=== PATIENT | female | born 1980 | race Caucasian/White ===

== ENCOUNTER 2016-11-02 15:14 | Emergency (ER) | payer OTHER ==
[~2016-11-02] VITALS: Ht 170.2 cm; Wt 163.3 kg
[~2016-11-02 15:14] MED LIST: ACETAMINOPHEN-1 EAC1 PO; ACTICIN 5% CREA60 G1 TOP; ADIPEX-P37.5 M1 PO; ALBUTEIN 225 GM/100 IJ; ALBUTEROL INHAL17 GM IH; AMBIEN; AMBIEN 10 MG TA10 MG PO; AMBIEN 5 MG TABL5 M1 PO; AMITRIPTYLINE H25 M3 PO; APAP/CODEINE ELI5 M1 OR; BENADRYL25 MG PO; BYSTOLIC2.5 MG; CLARITIN10 MG PO; CLEOCIN HCL150 MG PO; CLEOCIN HCL300 MG PO; CYMBALTA20 MG; DIFLUCAN150 MG PO; DOCUSATE SODIU100 MG PO; DOXYCYCLINE 10100 MG PO; EFFEXOR XR150 MG PO; EFFEXOR75 MG PO; ENDOCET 10-3251 EACH PO; ENOXAPARIN40 MG/0.1 INJECTION; FIORICET 50-321 EACH PO; FISH OIL 1,0001 EAC5 PO; FLAGYL500 MG PO; FLEXERIL PO; GABAPENTIN 100100 MG PO; GLUCOPHAGE500 MG PO; HIBICLENS120 ML TP; HORIZANT600 MG PO; HUMULIN R500 UNIT/M SQ; HYDROCHLOROTHIA25 M1 PO; HYDROCODON-ACE1 EAC1; IBUPROFEN 800800 M1 PO; JANUVIA100 MG PO; KEFLEX500 MG PO; LANTUS SUBQ; LEVAQUIN 500 M500 M1 PO; LIORESAL 10 MG10 MG PO; LISINOPRIL20 MG PO; LOPERAMIDE 2 MG2 M1 PO; LOPRESSOR25 PO; LORTAB 7.5/5001 TA3 PO; LOTRIMIN30 GM TP; LUNESTA3 MG PO; LYRICA 50 MG50 MG PO; MAGNESIUM400 MG; MAGOX 400400 MG PO; METFORMIN 500500 MG PO; MIRALAX255 GM PO; MOBIC15 MG PO; NEURONTIN 300300 M1 PO; NITROFURANTOIN100 MG PO; NORCO 5-325 TA1 EACH PO; NOVOLIN 70100 UNIT/5 SUBQ; NOVOLOG100 UNIT/1; NYSTATIN15 GM TP; ONDANSETRON ODT4 MG PO; OS-CAL 500+D C1 EACH PO; PERCOCET 5-3251 EACH PO; PRENATAL COMPL1 EACH PO; PRILOSEC40 MG PO; PRINIVIL10 MG PO; PROCTOCREAM-HC30 G1 RC; PROVENTIL HFA6.7 G1 INH; RANITIDINE; SYMBICORT; SYNTHROID125 MCG PO; TOPAMAX PO; TOPAMAX50 MG PO; TUSSIONEX PENN473 ML PO; VALIUM5 MG PO; VIBRAMYCIN 100100 MG PO; VICODIN 5-5001 EACH PO; VITAMIN D1000 UNI1; XANAX; XANAX XR2 MG; ZPAK PO
[2016-11-02] MEDS ORDERED: LEXAPRO 10 MG T10 M2 PO (15:25)
[2016-11-02] MEDS ORDERED: BACTRIM DS TAB1 EACH PO (15:25)
[2016-11-02] MEDS ORDERED: METFORMIN HCL500 MG PO (15:25)
[2016-11-02] MEDS ORDERED: ZITHROMAX500 M1 (15:26)
[2016-11-02 15:29] LABS: ABSOLUTE NEUTROPHILS 9.3 thou/uL (1.4-8.2); BASOPHILS 1.3 % (0.0-2.0); EOSINOPHILS 0.4 % (0.0-3.0); HEMATOCRIT 45.9 % (37.0-47.0); HEMOGLOBIN 15.3 gm/dL (12.0-15.0); LYMPHOCYTES 22.9 % (24.0-44.0); MCH 25.3 pg (26.0-34.0); MCHC 33.4 % (28.0-37.0); MCV 75.9 fL (80.0-100.0); MONOCYTES 5.1 % (1.0-8.0); PLATELET COUNT 393 thou/uL (150-400); POLYS 70.3 % (36.0-66.0); RBC 6.05 mil/uL (4.20-5.00); RDW 15.4 % (10.5-14.5); WBC 13.2 thou/uL (4.0-11.0)
[2016-11-02 15:31] LABS: MANUAL DIFF NO
[2016-11-02 15:40] LABS: CALCIUM 10.2 mg/dL (8.5-10.1); CREATININE 0.9 mg/dL (0.6-1.3); POTASSIUM 4.6 mmol/L (3.5-5.1)
[2016-11-02 15:46] LABS: ALBUMIN 3.9 g/dL (3.4-5.0); TOTAL BILIRUBIN 0.5 mg/dL (<0.1-1.0); TOTAL PROTEIN 8.2 g/dL (6.4-8.2)
[2016-11-02 16:53] LABS: URINE BILIRUBIN NEGATIVE (Negative); URINE BLOOD NEGATIVE (Negative); URINE COLOR YELLOW; URINE GLUCOSE-RANDOM* NEGATIVE (Negative); URINE KETONES NEGATIVE (Negative); URINE NITRITE NEGATIVE (Negative); URINE PROTEIN (DIPSTICK) NEGATIVE (Negative); URINE SPECIFIC GRAVITY >= 1.030 (1.003-1.035); URINE UROBILINOGEN 0.2 E.U./dl (0.2-1.0)
[2016-11-02] MEDS ORDERED: LEVSIN0.125 MG PO (17:47)
[2016-11-02] MEDS ORDERED: PHENERGAN 25 MG25 M1 PO (17:47)
[2016-11-02 18:33] VITALS: BP 112/64
[2016-12-02] MEDS ORDERED: CLEOCIN HCL150 MG PO (22:28)
[2016-12-02] MEDS ORDERED: KEFLEX500 MG PO (22:29)
== END 2016-11-02 18:35 | disposition home or self-care (01) ==
LOC: ER 15:14
PROVIDERS: Physician Assistant
DX: R05 Cough (principal); R11.2 Nausea with vomiting, unspecified; R19.7 Diarrhea, unspecified; M79.1 Myalgia; R50.9 Fever, unspecified; R10.9 Unspecified abdominal pain; R53.1 Weakness; I10 Essential (primary) hypertension; E11.9 Type 2 diabetes mellitus without complications; F17.210 Nicotine dependence, cigarettes, uncomplicated; F10.99 Alcohol use, unspecified with unspecified alcohol-induced disorder; F12.90 Cannabis use, unspecified, uncomplicated; Z88.5 Allergy status to narcotic agent; Z88.0 Allergy status to penicillin; Z88.8 Allergy status to other drugs, medicaments and biological substances; Z88.1 Allergy status to other antibiotic agents; Z91.040 Latex allergy status

== ENCOUNTER 2019-08-26 15:18 | Emergency (ER) | payer OTHER ==
[~2019-08-26] VITALS: Ht 172.7 cm; Wt 136.1 kg
[~2019-08-26 15:18] MED LIST changes: +BACTRIM DS TAB1 EACH PO; +LEVSIN0.125 MG PO; +LEXAPRO 10 MG T10 M2 PO; +METFORMIN HCL500 MG PO; +PHENERGAN 25 MG25 M1 PO; +ZITHROMAX500 M1
[2019-08-26] MEDS ORDERED: DILAUDID1 MG/1 M1 PO (15:29)
[2019-08-26 16:02] LABS: ABSOLUTE NEUTROPHILS 6.2 thou/uL (1.4-8.2); BASOPHILS 0.8 % (0.0-2.0); EOSINOPHILS 0.6 % (0.0-3.0); HEMOGLOBIN 14.8 gm/dL (12.0-15.0); LYMPHOCYTES 23.9 % (24.0-44.0); MCH 26.6 pg (26.0-34.0); MCHC 32.8 g/dL (28.0-37.0); MONOCYTES 6.2 % (1.0-8.0); PLATELET COUNT 330 thou/uL (150-400); POLYS 68.5 % (36.0-66.0); RBC 5.56 mil/uL (4.20-5.00); RDW 15.4 % (10.5-14.5)
[2019-08-26 16:15] LABS: CALCIUM 9.8 mg/dL (8.5-10.1); CREATININE 0.9 mg/dL (0.6-1.0); POTASSIUM 3.2 mmol/L (3.5-5.1)
[2019-08-26] MEDS ORDERED: DOXYCYCLINE 10100 MG PO ×2 (16:38→17:18)
[2019-08-26] MEDS ORDERED: MOBIC7.5 MG PO (16:38)
[2019-08-26 17:41] VITALS: BP 136/68
== END 2019-08-26 17:25 | disposition home or self-care (01) ==
LOC: ER 15:18
PROVIDERS: Nurse Practitioner Family
DX: L73.2 Hidradenitis suppurativa (principal); I10 Essential (primary) hypertension; E11.9 Type 2 diabetes mellitus without complications; M79.7 Fibromyalgia; F17.210 Nicotine dependence, cigarettes, uncomplicated; Z88.1 Allergy status to other antibiotic agents; Z91.040 Latex allergy status; Z88.0 Allergy status to penicillin; Z88.5 Allergy status to narcotic agent; Z88.6 Allergy status to analgesic agent; Z88.8 Allergy status to other drugs, medicaments and biological substances; Z85.9 Personal history of malignant neoplasm, unspecified; Z90.710 Acquired absence of both cervix and uterus

== ENCOUNTER 2019-09-27 12:39 | Emergency (ER) | payer OTHER ==
[~2019-09-27] VITALS: Ht 172.7 cm; Wt 172.4 kg
[~2019-09-27 12:39] MED LIST changes: +DILAUDID1 MG/1 M1 PO; +MOBIC7.5 MG PO
[2019-09-27 12:40] VITALS: BP 133/81
[2019-09-27] MEDS ORDERED: NORCO 5-325 TA1 EAC1 PO (15:25)
[2019-09-27] MEDS ORDERED: CLEOCIN HCL150 MG PO (15:25)
== END 2019-09-27 15:39 | disposition home or self-care (01) ==
LOC: ER 12:39
DX: L73.2 Hidradenitis suppurativa (principal); I10 Essential (primary) hypertension; E11.9 Type 2 diabetes mellitus without complications; M79.7 Fibromyalgia; F17.210 Nicotine dependence, cigarettes, uncomplicated; Z90.710 Acquired absence of both cervix and uterus; Z91.040 Latex allergy status; Z91.048 Other nonmedicinal substance allergy status; Z88.1 Allergy status to other antibiotic agents; Z88.6 Allergy status to analgesic agent; Z88.8 Allergy status to other drugs, medicaments and biological substances

== ENCOUNTER 2019-10-29 12:16 | Emergency (ER) | payer OTHER ==
[~2019-10-29] VITALS: Ht 170.2 cm; Wt 136.1 kg
[~2019-10-29 12:16] MED LIST changes: +NORCO 5-325 TA1 EAC1 PO
[2019-10-29 13:13] LABS: ABSOLUTE NEUTROPHILS 5.3 thou/uL (1.4-8.2); BASOPHILS 1.1 % (0.0-2.0); EOSINOPHILS 0.6 % (0.0-3.0); HEMATOCRIT 44.7 % (37.0-47.0); HEMOGLOBIN 14.6 gm/dL (12.0-15.0); LYMPHOCYTES 27.7 % (24.0-44.0); MCH 27.1 pg (26.0-34.0); MCHC 32.7 g/dL (28.0-37.0); MCV 82.9 fL (80.0-100.0); MONOCYTES 7.2 % (1.0-8.0); PLATELET COUNT 308 thou/uL (150-400); POLYS 63.4 % (36.0-66.0); RDW 16.3 % (10.5-14.5); WBC 8.4 thou/uL (4.0-11.0)
[2019-10-29 13:19] LABS: CREATININE 0.9 mg/dL (0.6-1.0); POTASSIUM 3.9 mmol/L (3.5-5.1)
[2019-10-29 13:25] LABS: ALBUMIN 3.8 g/dL (3.4-5.0); TOTAL BILIRUBIN 0.3 mg/dL (<0.1-1.0); TOTAL PROTEIN 8.4 g/dL (6.4-8.2)
[2019-10-29] MEDS ORDERED: BACTRIM DS TAB1 EACH PO (15:26)
[2019-10-29] MEDS ORDERED: DIFLUCAN150 MG PO (15:28)
[2019-10-29 15:36] VITALS: BP 109/75
[2019-10-29 15:53] LABS: URINE BILIRUBIN NEGATIVE (Negative); URINE BLOOD NEGATIVE (Negative); URINE COLOR YELLOW; URINE GLUCOSE-RANDOM* NEGATIVE (Negative); URINE KETONES NEGATIVE (Negative); URINE LEUKOCYTES-REFLEX NEGATIVE (Negative); URINE NITRITE-REFLEX NEGATIVE (Negative); URINE PROTEIN (DIPSTICK) NEGATIVE (Negative); URINE SPECIFIC GRAVITY >= 1.030 (1.005-1.035); URINE UROBILINOGEN 0.2 E.U./dl (0.2-1.0)
[2019-10-29 15:57] LABS: URINE CLARITY SL HAZY
== END 2019-10-29 15:37 | disposition home or self-care (01) ==
LOC: ER 12:16
PROVIDERS: Physician Assistant
DX: L73.2 Hidradenitis suppurativa (principal); R05 Cough; R11.2 Nausea with vomiting, unspecified; R19.7 Diarrhea, unspecified; I10 Essential (primary) hypertension; F17.210 Nicotine dependence, cigarettes, uncomplicated; E11.9 Type 2 diabetes mellitus without complications; Z90.710 Acquired absence of both cervix and uterus; M79.7 Fibromyalgia; Z79.899 Other long term (current) drug therapy; Z88.0 Allergy status to penicillin; Z88.1 Allergy status to other antibiotic agents; Z88.8 Allergy status to other drugs, medicaments and biological substances; Z88.5 Allergy status to narcotic agent; Z91.040 Latex allergy status

== ENCOUNTER 2019-12-14 12:38 | Emergency (ER) | payer OTHER ==
[~2019-12-14] VITALS: Ht 177.8 cm; Wt 113.4 kg
[2019-12-14 15:05] LABS: ABSOLUTE NEUTROPHILS 4.2 thou/uL (1.4-8.2); BASOPHILS 1.4 % (0.0-2.0); EOSINOPHILS 1.7 % (0.0-3.0); HEMATOCRIT 38.8 % (37.0-47.0); HEMOGLOBIN 12.7 gm/dL (12.0-15.0); LYMPHOCYTES 31.5 % (24.0-44.0); MCH 27.4 pg (26.0-34.0); MCHC 32.6 g/dL (28.0-37.0); MONOCYTES 7.2 % (1.0-8.0); PLATELET COUNT 283 thou/uL (150-400); POLYS 58.2 % (36.0-66.0); RBC 4.62 mil/uL (4.20-5.00); RDW 15.5 % (10.5-14.5); WBC 7.2 thou/uL (4.0-11.0)
[2019-12-14 15:13] LABS: ANION GAP 4 mmol/L (7-16); BUN 11 mg/dL (7-18); CALCIUM 8.9 mg/dL (8.5-10.1); CHLORIDE 101 mmol/L (98-107); CO2 32 mmol/L (21-32); CREATININE 0.7 mg/dL (0.6-1.0); GLUCOSE 106 mg/dL (74-106); POTASSIUM 4.3 mmol/L (3.5-5.1); SODIUM 137 mmol/L (136-145)
[2019-12-14 15:23] LABS: ALBUMIN 3.5 g/dL (3.4-5.0); SGOT 13 U/L (15-37); SGPT 18 U/L (30-65); TOTAL BILIRUBIN 0.2 mg/dL (<0.1-1.0); TOTAL PROTEIN 7.9 g/dL (6.4-8.2); TROPONIN-I <0.06 ng/mL (<0.06)
[2019-12-14 16:13] VITALS: BP 110/61
--- NOTE | 2019-12-14 16:25 | EKG ---
[facility] [place] [address] ELECTROCARDIOGRAM REPORT Name: LANE MCCRARY 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[employer] : 1980 Requested By: Chi Christianson Order Number: [id number] MD: En Vázquez Measurements Intervals [place] Rate: 65 P: 27 [place]: 168 QRS: -17 QRSD: 98 T: 11 QT: 400 QTc: 416 Interpretive Statements Sinus rhythm Borderline left axis deviation Cannot rule out septal infarct, age indeterminate Compared to ECG 02/14/2015 20:16:09 Septal Q waves are now present Electronically Signed On 12-14-2019 16:24:19 ATTENDING PSYCHIATRIST by En Vázquez [email or web address] <ELECTRONICALLY SIGNED> By: En Vázquez MD, [facility] 12/14/19 1624 1349 1349 En Vázquez MD, [facility] /EPI
== END 2019-12-14 16:13 | disposition home or self-care (01) ==
LOC: ER 12:38
PROVIDERS: Physician Assistant
DX: L73.2 Hidradenitis suppurativa (principal); M79.662 Pain in left lower leg; M25.572 Pain in left ankle and joints of left foot; R07.9 Chest pain, unspecified; R05 Cough; M79.89 Other specified soft tissue disorders; I10 Essential (primary) hypertension; E11.9 Type 2 diabetes mellitus without complications; M79.7 Fibromyalgia; F17.210 Nicotine dependence, cigarettes, uncomplicated; Z91.048 Other nonmedicinal substance allergy status; Z91.040 Latex allergy status; Z88.0 Allergy status to penicillin; Z88.1 Allergy status to other antibiotic agents; Z88.6 Allergy status to analgesic agent; Z88.8 Allergy status to other drugs, medicaments and biological substances

== ENCOUNTER 2020-02-09 19:19 | Emergency (ER) | payer OTHER ==
[~2020-02-09] VITALS: Ht 170.2 cm; Wt 127.0 kg
[2020-02-09 20:19] LABS: BASOPHILS 1.2 % (0.0-2.0); EOSINOPHILS 1.4 % (0.0-3.0); HEMATOCRIT 40.2 % (37.0-47.0); HEMOGLOBIN 13.6 gm/dL (12.0-15.0); LYMPHOCYTES 32.4 % (24.0-44.0); MCH 27.7 pg (26.0-34.0); MCHC 33.7 g/dL (28.0-37.0); MONOCYTES 7.7 % (1.0-8.0); PLATELET COUNT 291 thou/uL (150-400); POLYS 57.3 % (36.0-66.0); RDW 14.4 % (10.5-14.5)
[2020-02-09 20:29] LABS: ANION GAP 6 mmol/L (7-16); BUN 12 mg/dL (7-18); CALCIUM 8.9 mg/dL (8.5-10.1); CHLORIDE 102 mmol/L (98-107); CO2 29 mmol/L (21-32); CREATININE 0.7 mg/dL (0.6-1.0); POTASSIUM 3.6 mmol/L (3.5-5.1); SODIUM 137 mmol/L (136-145)
[2020-02-09 20:30] LABS: GLUCOSE 137 mg/dL (74-106)
[2020-02-09 20:40] LABS: ALBUMIN 3.5 g/dL (3.4-5.0); LIPASE 123 U/L (73-393); SGOT 11 U/L (15-37); SGPT 19 U/L (30-65); TOTAL BILIRUBIN 0.2 mg/dL (<0.1-1.0); TOTAL PROTEIN 7.6 g/dL (6.4-8.2); TROPONIN-I <0.06 ng/mL (<0.06)
[2020-02-09 20:49] LABS: DIRECT BILIRUBIN < 0.1 mg/dL (<0.1-0.2)
[2020-02-09] MEDS ORDERED: ZOFRAN ODT4 MG PO (21:33)
[2020-02-09 21:59] VITALS: BP 147/73
--- NOTE | 2020-02-10 11:16 | EKG ---
[facility] [place] [address] ELECTROCARDIOGRAM REPORT Name: LANE MCCRARY Room #: DEP 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
== END 2020-02-09 21:38 | disposition home or self-care (01) ==
LOC: ER 19:19
PROVIDERS: Emergency Medicine
DX: E03.9 Hypothyroidism, unspecified (principal); R06.00 Dyspnea, unspecified; R06.02 Shortness of breath; R50.9 Fever, unspecified; R53.81 Other malaise; R51 Headache; R07.9 Chest pain, unspecified; M54.9 Dorsalgia, unspecified; R11.0 Nausea; R63.0 Anorexia; I10 Essential (primary) hypertension; E11.9 Type 2 diabetes mellitus without complications; F17.210 Nicotine dependence, cigarettes, uncomplicated; Z91.14 Patient's other noncompliance with medication regimen; Z79.899 Other long term (current) drug therapy; Z88.1 Allergy status to other antibiotic agents; Z88.8 Allergy status to other drugs, medicaments and biological substances; Z88.0 Allergy status to penicillin

== ENCOUNTER 2020-02-27 21:26 | Emergency (ER) | payer OTHER ==
[~2020-02-27] VITALS: Ht 170.2 cm; Wt 136.1 kg
[~2020-02-27 21:26] MED LIST changes: +ZOFRAN ODT4 MG PO
[2020-02-27 22:16] LABS: ABSOLUTE NEUTROPHILS 3.7 thou/uL (1.4-8.2); BASOPHILS 0.7 % (0.0-2.0); EOSINOPHILS 1.1 % (0.0-3.0); HEMATOCRIT 44.8 % (37.0-47.0); HEMOGLOBIN 14.8 gm/dL (12.0-15.0); LYMPHOCYTES 26.8 % (24.0-44.0); MCH 27.3 pg (26.0-34.0); MCHC 33.1 g/dL (28.0-37.0); MCV 82.3 fL (80.0-100.0); MONOCYTES 7.3 % (1.0-8.0); PLATELET COUNT 226 thou/uL (150-400); POLYS 64.1 % (36.0-66.0); RBC 5.44 mil/uL (4.20-5.00); RDW 14.8 % (10.5-14.5); WBC 5.7 thou/uL (4.0-11.0)
[2020-02-27 22:23] LABS: ANION GAP 10 mmol/L (7-16); BUN 10 mg/dL (7-18); CALCIUM 9.4 mg/dL (8.5-10.1); CHLORIDE 99 mmol/L (98-107); CO2 27 mmol/L (21-32); CREATININE 0.8 mg/dL (0.6-1.0); GLUCOSE 131 mg/dL (74-106); POTASSIUM 3.7 mmol/L (3.5-5.1); SODIUM 136 mmol/L (136-145)
[2020-02-27 22:34] LABS: ALBUMIN 3.9 g/dL (3.4-5.0); SGOT 17 U/L (15-37); SGPT 15 U/L (30-65); TOTAL BILIRUBIN 0.6 mg/dL (<0.1-1.0); TOTAL PROTEIN 8.1 g/dL (6.4-8.2); TROPONIN-I <0.06 ng/mL (<0.06)
[2020-02-28 00:17] VITALS: BP 137/86
--- NOTE | 2020-02-28 08:03 | EKG ---
[facility] [place] [address] ELECTROCARDIOGRAM REPORT Name: ALNE MCCRARY [facility] [id number] Admission: 02/27/20 Attend Phys: Discharge: 02/28/20 Date of : [birth year] Report #: [id number] THIS REPORT FOR: cc: GLORIA - Marly family physician/PCP GLORIA - Marly family physician/PCP En Vázquez MD 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
== END 2020-02-28 00:18 | disposition home or self-care (01) ==
LOC: ER 21:26
PROVIDERS: Emergency Medicine
DX: J40 Bronchitis, not specified as acute or chronic (principal); R00.2 Palpitations; R11.0 Nausea; I10 Essential (primary) hypertension; E11.9 Type 2 diabetes mellitus without complications; M79.7 Fibromyalgia; F17.210 Nicotine dependence, cigarettes, uncomplicated; Z85.850 Personal history of malignant neoplasm of thyroid; Z85.89 Personal history of malignant neoplasm of other organs and systems; Z90.710 Acquired absence of both cervix and uterus; Z79.899 Other long term (current) drug therapy; Z91.048 Other nonmedicinal substance allergy status; Z88.1 Allergy status to other antibiotic agents; Z88.8 Allergy status to other drugs, medicaments and biological substances; Z91.040 Latex allergy status; Z88.5 Allergy status to narcotic agent; Z88.0 Allergy status to penicillin

== ENCOUNTER 2020-03-15 16:29 | Emergency (ER) | payer OTHER ==
[~2020-03-15] VITALS: Ht 170.2 cm; Wt 136.1 kg
[2020-03-15 17:09] LABS: ABSOLUTE NEUTROPHILS 4.8 thou/uL (1.4-8.2); BASOPHILS 1.2 % (0.0-2.0); EOSINOPHILS 0.6 % (0.0-3.0); HEMATOCRIT 44.4 % (37.0-47.0); LYMPHOCYTES 25.7 % (24.0-44.0); MCH 27.3 pg (26.0-34.0); MCHC 33.9 g/dL (28.0-37.0); MCV 80.7 fL (80.0-100.0); MONOCYTES 5.6 % (1.0-8.0); PLATELET COUNT 267 thou/uL (150-400); POLYS 66.9 % (36.0-66.0); RBC 5.51 mil/uL (4.20-5.00); WBC 7.2 thou/uL (4.0-11.0)
[2020-03-15 17:15] LABS: ANION GAP 11 mmol/L (7-16); BUN 10 mg/dL (7-18); CALCIUM 9.2 mg/dL (8.5-10.1); CHLORIDE 100 mmol/L (98-107); CO2 26 mmol/L (21-32); CREATININE 0.8 mg/dL (0.6-1.0); GLUCOSE 157 mg/dL (74-106); POTASSIUM 3.8 mmol/L (3.5-5.1); SODIUM 137 mmol/L (136-145)
[2020-03-15 17:21] LABS: ALBUMIN 3.6 g/dL (3.4-5.0); DIRECT BILIRUBIN < 0.1 mg/dL (<0.1-0.2); SGOT 29 U/L (15-37); SGPT 22 U/L (30-65); TOTAL BILIRUBIN 0.7 mg/dL (<0.1-1.0); TOTAL PROTEIN 8.2 g/dL (6.4-8.2)
[2020-03-15 17:59] LABS: URINE BILIRUBIN NEGATIVE (Negative); URINE BLOOD NEGATIVE (Negative); URINE CLARITY CLEAR; URINE COLOR YELLOW; URINE GLUCOSE-RANDOM* NEGATIVE (Negative); URINE KETONES 1+ (Negative); URINE LEUKOCYTES-REFLEX NEGATIVE (Negative); URINE NITRITE-REFLEX NEGATIVE (Negative); URINE PROTEIN (DIPSTICK) NEGATIVE (Negative); URINE UROBILINOGEN 0.2 E.U./dl (0.2-1.0)
[2020-03-15 19:06] VITALS: BP 126/54
--- NOTE | 2020-03-16 12:05 | EKG ---
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: [facility] : 1980 Requested By: Suraj Mckeon Order Number: [id number] MD: Blaze Sanchez Measurements Intervals [place] Rate: 81 P: 53 [place]: 155 QRS: 1 QRSD: 101 T: 48 QT: 381 QTc: 443 Interpretive Statements Sinus rhythm RSR' in V1 or V2, right VCD Compared to ECG 02/27/2020 21:32:44 RSR' in V1 or V2 now present Sinus tachycardia no longer present Left-axis deviation no longer present Electronically Signed On 03-16-2020 12:03:48 CDT by Blaze Sanchez [email or web address] <ELECTRONICALLY SIGNED> By: Blaze Sanchez MD 03/16/20 1203 1720 1720 Blaze Sanchez MD /EPI
== END 2020-03-15 18:58 | disposition still patient (30) ==
LOC: ER 16:29
PROVIDERS: Emergency Medicine
DX: J06.9 Acute upper respiratory infection, unspecified (principal); I10 Essential (primary) hypertension; E11.9 Type 2 diabetes mellitus without complications; M79.7 Fibromyalgia; Z86.711 Personal history of pulmonary embolism; F17.210 Nicotine dependence, cigarettes, uncomplicated; Z79.891 Long term (current) use of opiate analgesic; Z85.850 Personal history of malignant neoplasm of thyroid; Z90.710 Acquired absence of both cervix and uterus; Z79.899 Other long term (current) drug therapy; Z91.048 Other nonmedicinal substance allergy status; Z88.1 Allergy status to other antibiotic agents; Z88.8 Allergy status to other drugs, medicaments and biological substances; Z91.040 Latex allergy status; Z88.5 Allergy status to narcotic agent; Z88.0 Allergy status to penicillin

== ENCOUNTER 2020-05-22 19:21 | Emergency (ER) | payer OTHER ==
[~2020-05-22] VITALS: Ht 170.2 cm; Wt 135.6 kg
[2020-05-22] MEDS ORDERED: ZOFRAN ODT4 MG PO (21:15)
[2020-05-22] MEDS ORDERED: CLINDAMYCIN HC150 MG PO (21:15)
[2020-05-22 21:35] LABS: URINE BILIRUBIN NEGATIVE (Negative); URINE BLOOD NEGATIVE (Negative); URINE CLARITY CLEAR; URINE COLOR YELLOW; URINE GLUCOSE-RANDOM* NEGATIVE (Negative); URINE KETONES TRACE (Negative); URINE LEUKOCYTES-REFLEX NEGATIVE (Negative); URINE NITRITE-REFLEX NEGATIVE (Negative); URINE PROTEIN (DIPSTICK) NEGATIVE (Negative); URINE SPECIFIC GRAVITY >= 1.030 (1.005-1.035)
[2020-05-22 21:46] VITALS: BP 120/83
[2020-05-23] MEDS ORDERED: NAPROSYN500 MG PO (10:48)
== END 2020-05-22 21:46 | disposition home or self-care (01) ==
LOC: ER 19:21
PROVIDERS: Nurse Practitioner
DX: S93.602A Unspecified sprain of left foot, initial encounter (principal); K02.9 Dental caries, unspecified; E11.40 Type 2 diabetes mellitus with diabetic neuropathy, unspecified; I10 Essential (primary) hypertension; M79.7 Fibromyalgia; E11.9 Type 2 diabetes mellitus without complications; F17.210 Nicotine dependence, cigarettes, uncomplicated; Z90.711 Acquired absence of uterus with remaining cervical stump; Z85.850 Personal history of malignant neoplasm of thyroid; Z79.899 Other long term (current) drug therapy; Z91.048 Other nonmedicinal substance allergy status; Z88.1 Allergy status to other antibiotic agents; Z91.040 Latex allergy status; Z88.5 Allergy status to narcotic agent; Z88.0 Allergy status to penicillin; Z88.8 Allergy status to other drugs, medicaments and biological substances; Z98.890 Other specified postprocedural states; X50.9XXA Other and unspecified overexertion or strenuous movements or postures, initial encounter; Y93.89 Activity, other specified; Y92.89 Other specified places as the place of occurrence of the external cause; Y99.8 Other external cause status

== ENCOUNTER 2020-05-23 09:55 | Emergency (ER) | payer OTHER ==
[~2020-05-23] VITALS: Ht 170.2 cm; Wt 136.1 kg
[~2020-05-23 09:55] MED LIST changes: +CLINDAMYCIN HC150 MG PO; -NEURONTIN 300300 M1 PO; +NEURONTIN 400400 M1 PO
[2020-05-23 10:00] VITALS: BP 134/74
[2020-05-23] MEDS ORDERED: NAPROSYN500 MG PO (10:48)
== END 2020-05-23 11:05 | disposition home or self-care (01) ==
LOC: ER 09:55
DX: M72.2 Plantar fascial fibromatosis (principal); M76.62 Achilles tendinitis, left leg; F17.210 Nicotine dependence, cigarettes, uncomplicated; F12.90 Cannabis use, unspecified, uncomplicated; Z88.1 Allergy status to other antibiotic agents; Z91.040 Latex allergy status; Z79.899 Other long term (current) drug therapy

== ENCOUNTER 2020-05-26 11:28 | Emergency (ER) | payer OTHER ==
[~2020-05-26] VITALS: Ht 170.2 cm; Wt 136.1 kg
[~2020-05-26 11:28] MED LIST changes: +NAPROSYN500 MG PO
[2020-05-26 12:46] LABS: BASOPHILS 0.4 % (0.0-2.0); HEMATOCRIT 38.6 % (37.0-47.0); MCH 27.2 pg (26.0-34.0); MCHC 33.7 g/dL (28.0-37.0); MCV 80.8 fL (80.0-100.0); MONOCYTES 9.6 % (1.0-8.0); PLATELET COUNT 338 thou/uL (150-400); RBC 4.78 mil/uL (4.20-5.00); RDW 14.4 % (10.5-14.5); WBC 16.9 thou/uL (4.0-11.0)
[2020-05-26 12:53] LABS: CALCIUM 9.2 mg/dL (8.5-10.1); CREATININE 0.8 mg/dL (0.6-1.0); POTASSIUM 3.7 mmol/L (3.5-5.1)
[2020-05-26 12:58] LABS: ALBUMIN 3.4 g/dL (3.4-5.0); TOTAL PROTEIN 8.1 g/dL (6.4-8.2)
[2020-05-26] MEDS ORDERED: SYNTHROID100 MC1 PO (13:16)
[2020-05-26] MEDS ORDERED: LEXAPRO20 MG PO (13:17)
[2020-05-26] MEDS ORDERED: SINGULAIR 10 MG10 MG PO (13:18)
[2020-05-26] MEDS ORDERED: ZYRTEC10 M2 PO (13:18)
[2020-05-26] MEDS ORDERED: DILAUDID4 MG PO (13:55)
[2020-05-26 13:59] LABS: URINE BILIRUBIN 1+ (Negative); URINE BLOOD NEGATIVE (Negative); URINE GLUCOSE-RANDOM* NEGATIVE (Negative); URINE KETONES NEGATIVE (Negative); URINE LEUKOCYTES-REFLEX NEGATIVE (Negative); URINE PROTEIN (DIPSTICK) 1+ (Negative); URINE SPECIFIC GRAVITY >= 1.030 (1.005-1.035)
[2020-05-26 14:01] LABS: URINE NITRITE-REFLEX POSITIVE (Negative)
[2020-05-26 14:02] LABS: ICTOTEST (BILI CONFIRMATORY) Positive (Negative); URINE CLARITY SL HAZY; URINE COLOR DK YELLOW
[2020-05-26 14:18] LABS: CASTS None Seen /LPF (None Seen); MUCUS >6 Heavy strn/LPF (None Seen); SQUAMOUS 4-10 Moderate /LPF (0-3)
[2020-05-26 14:19] LABS: CRYSTALS None Seen /LPF (None Seen); URINE RBC 0-2 Rare /HPF (0-2); URINE WBC-REFLEX 0-5 Rare /HPF (0-5)
[2020-05-26 15:36] VITALS: BP 115/64
== END 2020-05-26 15:36 | disposition home or self-care (01) ==
LOC: ER 11:28
PROVIDERS: Physician Assistant
DX: S91.352A Open bite, left foot, initial encounter (principal); L03.116 Cellulitis of left lower limb; G89.29 Other chronic pain; M79.662 Pain in left lower leg; I10 Essential (primary) hypertension; E11.9 Type 2 diabetes mellitus without complications; F17.210 Nicotine dependence, cigarettes, uncomplicated; Z79.899 Other long term (current) drug therapy; Z88.8 Allergy status to other drugs, medicaments and biological substances; Z88.0 Allergy status to penicillin; Z88.1 Allergy status to other antibiotic agents; Z91.040 Latex allergy status; Z88.5 Allergy status to narcotic agent; Z91.048 Other nonmedicinal substance allergy status; W55.51XA Bitten by raccoon, initial encounter; Y93.89 Activity, other specified; Y92.89 Other specified places as the place of occurrence of the external cause; Y99.8 Other external cause status

== ENCOUNTER 2020-05-27 16:17 | Inpatient (IN) | payer OTHER ==
[~2020-05-27] VITALS: Ht 170.2 cm; Wt 138.8 kg
--- NOTE | ~2020-05-27 | O ---
[facility] [place] [address] OPERATIVE REPORT Name: LANE MCCRARY Room #: 458-P ADM IN M.R.#: [id number] Admission: 05/27/20 Attend Phys: Dhruv Casillas MD Discharge: Date of : [birth year] Report #: [id number] THIS REPORT FOR: cc: GLORIA - No family physician/PCP GLORIA - No family physician/PCP Last Bah MD ~ CC: 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 PROCEDURE PERFORMED: Left foot irrigation and debridement of dorsal foot abscess. SURGEON: Last Bah M.D. SECTION LEADER: Chica Easton PA-C. ANESTHESIA: General. FLUIDS: Please see anesthesia records. TOURNIQUET TIME: Approximately 14 minutes at 250 mmHg. SPECIMENS: Dorsal foot abscess. Purulent fluid sent for culture and sensitivity, cell count and differential, Gram stain. DESCRIPTION OF PROCEDURE: After proper identification of the patient and the operative site in preoperative holding area, the operative site was signed by myself. We discussed the nature of her MRI findings, the subcutaneous abscess, possible bony involvement and discussed treatment plan. The patient wished to proceed with the above. We discussed potential need multiple or serial irrigation and debridements if she has persistent fluid collections. We discussed potential utilization of a drain. We also discussed with bony involvement that this could require more of an osseous debridement or if she had persistence of infection that spread this potentially can be limb threatening in nature and require amputation. Questions were encouraged. All were answered. The patient wished to proceed with the above. She was brought back to the operative suite after induction of satisfactory general anesthesia by Dr. Cunningham. The left lower extremity was elevated due to the underlying obesity [facility] [address] [place] [address] OPERATIVE REPORT Name: LANE MCCRARY Room #: 458-P [facility] IN .R.#: [id number] Admission: 05/27/20 Attend Phys: Dhruv Casillas MD Discharge: Date of : 80 Report #: [id number] and pie-shaped calf tourniquet was utilized. The limb was elevated for exsanguination purposes only after it had been sterilely prepped and draped and then the tourniquet was inflated. The patient had subcutaneous fluctuance over the dorsal lateral mid foot and ecchymotic area of skin was noted about approximately the size of a quarter. This was the area of the primary incision and then further dorsally and medially a secondary incision was created, immediate expression of purulent fluid was noted, which was sent for fluid analysis, culture and sensitivity. Next, using a blunt hemostat subcutaneous fluid pocket, which appeared to have some multiloculated appearance on the MRI, was broken up and then a combination of instruments were used to debride this area. There did not appear to be any softness of the bony mid foot from the dorsal aspect and so a more extensive bony type debridement was not performed as this appeared to be more soft tissue in nature. This was thoroughly irrigated with antibiotic irrigant and the surrounding tissues were bluntly debrided to remove any loculated fluid collections. After these were felt to be fully released and the irrigation and debridement was completed, a Wilton drain was placed through both of these incisions with long tags left, portion of the incisions were closed still allowing for drainage and a sterile compressive dressing was applied. At time of dictation, the patient was still in the operative suite with anticipated discharge to recovery room in stable condition. By: 0901 0911 Last Bah MD /nt
[2020-05-27 16:35] VITALS: BP 108/50
[2020-05-27 17:27] LABS: ABSOLUTE NEUTROPHILS 16.8 thou/uL (1.4-8.2); BASOPHILS 0.3 % (0.0-2.0); EOSINOPHILS 0.1 % (0.0-3.0); HEMATOCRIT 35.4 % (37.0-47.0); LYMPHOCYTES 4.7 % (24.0-44.0); MCH 27.3 pg (26.0-34.0); MCHC 33.9 g/dL (28.0-37.0); MCV 80.5 fL (80.0-100.0); MONOCYTES 7.2 % (1.0-8.0); PLATELET COUNT 361 thou/uL (150-400); POLYS 87.7 % (36.0-66.0); RDW 15.2 % (10.5-14.5); WBC 19.1 thou/uL (4.0-11.0)
[2020-05-27 17:28] LABS: URINE BILIRUBIN NEGATIVE (Negative); URINE BLOOD NEGATIVE (Negative); URINE CLARITY CLEAR; URINE COLOR YELLOW; URINE GLUCOSE-RANDOM* NEGATIVE (Negative); URINE KETONES NEGATIVE (Negative); URINE LEUKOCYTES-REFLEX NEGATIVE (Negative); URINE NITRITE-REFLEX NEGATIVE (Negative); URINE PROTEIN (DIPSTICK) NEGATIVE (Negative); URINE UROBILINOGEN 0.2 E.U./dl (0.2-1.0)
[2020-05-27 17:40] LABS: CALCIUM 8.8 mg/dL (8.5-10.1); CREATININE 0.8 mg/dL (0.6-1.0); POTASSIUM 3.3 mmol/L (3.5-5.1)
[2020-05-27 17:46] LABS: ALBUMIN 2.9 g/dL (3.4-5.0); MAGNESIUM 1.8 mg/dL (1.8-2.4); TOTAL BILIRUBIN 0.9 mg/dL (0.2-1.0); TOTAL PROTEIN 7.8 g/dL (6.4-8.2)
[2020-05-27 18:37] VITALS: BP 118/61
[2020-05-27 20:08] VITALS: BP 115/63
[2020-05-27 20:45] VITALS: BP 118/64
--- NOTE | 2020-05-28 00:49 | NUR ---
PT REPORTING LLE PAIN WORSE THAN PREVIOUS SURGERY PAIN AND REQUESTING PROVIDER BE CALLED FOR AN INCREASE IN PAIN MEDICATION. PROVIDER NOTIFIED AND NEW ORDERS WILL BE OBTAINED.
--- NOTE | 2020-05-28 03:00 | NUR ---
PT ADMITTED FROM ED. PT HAS SCOOTER FROM HOME IN ROOM. PT LLE EDEMA+3 RED, COOL. PT REQUESTED FOOD, NAUSEA AND PAIN MEDICATION UPON ARRIVAL TO THE FLOOR. PT ASKED IF SHE WAS ON A COVID R/O FLOOR, PT EXPRESSED WANTING TO BE MOVED OFF FLOOR ONCE NEGATIVE TEST CONFIRMED. PT LIVES AT HOME WITH HER MOTHER AND HER CHILDREN. PT REPORTS HAVING WHOLE PERSON COME TO VISIT HER TO ASSIT WITH NEEDS. PT HAS BSC AND HAS BEEN ASKED TO CALL FOR ASSIST WITH TRANSFERS. IVF INTACT. MED HX PER PT NEUROPATHY, SJOGRENS SYNDROME, FIBROMYALGIA, LEFT ACHILLES SURGERY, HTN, CHRONIC BACK PAIN.
[2020-05-28 04:22] VITALS: BP 108/51
[2020-05-28 06:28] LABS: HEMATOCRIT 38.2 % (37.0-47.0); HEMOGLOBIN 12.5 gm/dL (12.0-15.0); MCHC 32.8 g/dL (28.0-37.0); MCV 82.4 fL (80.0-100.0); RBC 4.64 mil/uL (4.20-5.00); WBC 14.4 thou/uL (4.0-11.0)
[2020-05-28 06:53] LABS: CALCIUM 8.7 mg/dL (8.5-10.1); CREATININE 0.7 mg/dL (0.6-1.0); MAGNESIUM 1.9 mg/dL (1.8-2.4); POTASSIUM 3.6 mmol/L (3.5-5.1)
[2020-05-28 08:03] VITALS: BP 91/50
--- NOTE | 2020-05-28 12:45 | NUR ---
PER YSABEL RAZO DC ISOLATION FOR COVID.
[2020-05-28 15:18] VITALS: BP 110/58
--- NOTE | 2020-05-28 15:58 | NUR ---
INITIAL ASSESSMENT: Received consult. TEREZA reviewed chart and spoke with nursing and attending physician. Pt was admitted from home due to LLE cellulitis. Pt placed in Enhanced Isolation to r/o COVID-19. Pt's test is negative. Pt to transfer off of 3W when a bed becomes available. Pt is febrile and on IV abx. Not requiring oxygen. Pt to have an I&D of her left foot. Pt with recent bites from a raccoon that her brother caught and has been keeping in their house. Pt with hx of thyroid cancer, anxiety, bipolar disorder, diabetes type 2, HTN and fibromyalgia. TEREZA spoke with pt via phone. Introduced role of TEREZA. Pt is alert/orientated x 4 and states she lives at home with her family. Prior to admission, pt was using a knee scooter. Pt states she has been renting the knee scooter. Pt currently receives Medicaid in-home services through [employer] 3hrs/day. Pt states she is concerned how she will be able to get around after her I&D. TEREZA explained that therapy can evaluate her and make further recommendations. Pt has a new PCP, who she will see on 06/23. Pt unsure of her PCP's name. TEREZA is following to assist as needed with discharge planning.
--- NOTE | 2020-05-28 16:10 | NUR ---
ASSUMED CARE AT SHIFT CHANGE, ALERT AND ORIENTED X 4. ASSESSMENT DOCUMENTED. C/O SEVERE PAIN TO LT FOOT, LT EDEMATOES AND WARM TO TOUCH, DR LEE SEEN PATIENT, AND MEDICATED NEEDED. REMAINS NPO PER DR LEE RECOMENDATION, AND CONSULT CALLED IN TO DR WINSLOW OFFICE. WILL CONTINUE WITH POC.
--- NOTE | 2020-05-28 18:27 | NUR ---
PATIENT ARRIVED AT [facility] AT APPROX. 1810. IV INTACT AND RUNNING NS. PATIENT REQUESTED A SHOWER. VSS. DENIES OTHER NEEDS AT THIS TIME. C/O PAIN AT ALL TIMES; WILL CONTINUE TO MEDICATE WHEN AVAILABLE.
[2020-05-28 20:45] VITALS: BP 140/72
--- NOTE | 2020-05-28 22:00 | NUR ---
Pt. with elevated temp during the shift and po tylenol given (see emar) with some relief. Erica KAT called and notified. Iv anitbiotics given as ordered.
[2020-05-29 01:06] LABS: GLYCOHEMOGLOBIN (HGB A1C) 5.7 % (4.8-5.6)
--- NOTE | 2020-05-29 06:00 | NUR ---
Pt. has rested very little during the night when checked on during frequent rounds. She c/o chronic pain to her left lower extremity and pain meds given (see emar) with some to little relief noted. Left lower ankle and foot edematous and warm upon touch. Left foot elevated up on pillows. Up to the bathroom with standby assistance.
[2020-05-29 07:38] VITALS: BP 96/50
--- NOTE | 2020-05-29 10:40 | NUR ---
Nutrition: Assessed due to consult for wound. Pt admit with LLE cellulitis. Provider notes indicate recent raccoon bite/scratch, soft tissue infection and to have I&D of L foot soon. No open wound indicated. Receiving IV antibiotics and rabies vaccine. Pt only ate 30% of first meal last night, but normally able to eat ok. Having pain. Discussed important nutrient needs/nutrients of concern w/ pt. Pt states diet is being changed off heart healthy and she also denies diabetes anymore. Reports she spoke w/ her tube handler recently and her DM has been very controlled for 2 yrs now with A1c ranging 5.1-5.8%. A1c 5.7% per 05/27 labs. Wt remains stable at 300# for the last 9 mo, pt is morbidly obese. Encouraged prioritizing protein from food sources and described what provides protein. Also encouraged adequate fruit/vegetable intake and zinc as well to help w/ repair/wound healing. Pt uses Ensure in past hospital stays and at home. Encouraged Ensure MAX to minimize kcals, optimize protein but pt highly dislikes- too "thick". Wants regular Ensure. Will send at AM and HS times per pt request. If meal intakes found to be sufficient, will likely decrease to 1x daily to prevent additional weight gain. Low nutrition risk.
--- NOTE | 2020-05-29 15:18 | NUR ---
PT HAD MRI THIS DAY. ORTHO HAD INDICATED THAT THEY WOULD TENATIVELY PLAN FOR I&D TOMORROW. CM TO FOLLOW INDICATED WITH DC PLANNING. PT HAD SOME COMPLAINTS THAT PHOTOGRAPHER NEWS VISITED WITH HER TO ADDRESS. CM FOLLOWING REGARDING DC PLANNING.
[2020-05-29 15:20] VITALS: BP 113/47
--- NOTE | 2020-05-29 16:41 | NUR ---
CONSULTED TO PLACE A PICC FOR A PATIENT NEEDING IV ACCESS. ORDER AND CONSENT NOTED. A #5F DOUBLE LUMEN POWER PICC WAS PLACED PER POLICY AFTER A BEDSIDE TIMEOUT WAS COMPLETED. LINE TRIMMED TO 54CM AND ADVANCED WITHOUT DIFFICULTY. A STAT CHEST XRAY ORDERED FOR CONFIRMATION.
--- NOTE | 2020-05-29 19:52 | NUR ---
ASSUMED CARE OF PATIENT AT 0700. ASSESSMENT COMPLETED. PATIENT COMPLAINED THAT SHE IS NOT DIABETIC NOR DOES SHE NEED TO BE ON A HEART HEALTHY DIET AND THOSE WERE BOTH CHANGED PER DR. LEE. PATIENT UNDERWENT A LEFT FOOT MRI AND TOLERATED THE PROCEDURE WELL. PATIENT COMPLAINED OF HER LEFT FA IV, STATING THAT, "IT'S LEAKING". PATIENT REQUESTED A PICC LINE, APPROVAL RECEIVED BY DR. LEE. CONFIRMED WITH DR. ALBRIGHT THAT A PICC IS ACCEPTABLE WITH POSITIVE BLOOD CULTURES. DR. ALBRIGHT GAVE APPROVAL AND LEFT UE DOUBLE LUMEN PICC PLACED. IV ABX. 2ND DOSE OF RABIES INJECTION GIVEN TODAY WITHOUT ANY COMPLAINTS. PATIENT SCHEDULED FOR LEFT FOOT IRRIGATION AND DEBRIDEMENT TOMORROW. PATIENT REQUESTED TO SPEAK WITH THE DIGITAL SERVICE ENGINEER AND RETAIL CONSULTANT TODAY WITH MULTIPLE COMPLAINTS. PATIENT TO CONTINUE WITH POC.
[2020-05-29 20:40] VITALS: BP 115/67
--- NOTE | 2020-05-30 03:24 | NUR ---
ASSUMED CAER OF PT AT 1900HRS. PT AOX4 AND LETS NEEDS BE KNOWN. FALL PRECAUTION IN PLACE. PT REPORT PAIN AND NAUSEA AND PRN MEDS WERE PROVIDED AROUND THE CLOCK. PT DENIED SOA. PT TOOL A SHOWER THIS SHIFT. REDNESS ON LLE WAS MARKED AND IS NOT ADVANCING AT THIS TIME. PT PLACED NPO AT MN FOR I&D IN THE AM. PT HAD A TEMP AND PRN TYLENOL WAS PROVIDED. NO OTHER S/S OF ACUTE DISTRESS. WILL CONTUNUE TO MONITOR.
[2020-05-30 05:13] VITALS: BP 129/84
[2020-05-30 06:13] LABS: HEMATOCRIT 31.2 % (37.0-47.0); MCH 26.7 pg (26.0-34.0); MCV 80.8 fL (80.0-100.0); RBC 3.86 mil/uL (4.20-5.00); RDW 15.7 % (10.5-14.5); WBC 12.4 thou/uL (4.0-11.0)
[2020-05-30 06:16] LABS: CALCIUM 8.7 mg/dL (8.5-10.1); CREATININE 0.8 mg/dL (0.6-1.0); POTASSIUM 3.6 mmol/L (3.5-5.1)
[2020-05-30 06:32] LABS: HEMOGLOBIN 10.3 gm/dL (12.0-15.0)
[2020-05-30 11:37] VITALS: BP 111/60
--- NOTE | 2020-05-30 13:54 | NUR ---
PT UNDERWENT I&D THIS DAY. PT AND OT HAVE BEEN ORDERED AND THE WILL ASSESS PT TOMORROW SHEWILL BE POD#1. PT CONTINUES ON IV ABX AT THIS TIME. PT HAD BEEN USING A KNEE SCOOTER SCREED PERSON. IT IS UNCERTAIN IF IT WOULD BE SAFE TO USE IT UPON DC. PT HAD HCBS THROUGH THE WHOLE PERSON 3HRS/DAY SCREED PERSON WELL. PT MAY BENEFIT FROM HOME HEALTH NURSING UPON DC WHICH WOULD BE THE ONLY DISCIPLINE SHE WOULD GET WITH HER MEDICAID. IF PT AND OT SHOULD DETERMINE THAT PT WOULD BENEFIT FROM POST ACUTE CARE STAY FOR REHAB SERVICES. PT COULD POTENTIALLY GO TO AN ACUTE REHAB FACILITY LIKE [facility], OR [facility]. CM FOLLOWING REGARDING DC PLANNING.
[2020-05-30 16:04] VITALS: BP 125/51
--- NOTE | 2020-05-30 16:25 | NUR ---
ASSUMED CARE AT 0700. PT IS ALERT AND ORIENTED. HAS MANY COMPLAINTS. PAIN, ELECTION JUDGE, STAFF. PT IS DUE FOR AN I&D OF LEFT LEG TODAY. VSS H/O FEVERS. RA. NPO IN PREP FOR PROCEDURE THIS AM. SINCE RETURNING, TOLERATING DIET. GI/ WNL. PT TO OR THIS AM AROUND 0730. BACK TO FLOOR AROUND 1000. LEFT LEG/ANKLE IS WRAPPED IN VIDHYA WRAP WITH A JANINA DRAIN IN PLACE PER REPORT. PAIN STILL NOT CONTROLLED. SPOKE WITH DR LEE, NEW ORDERS REC. WILL GIVE PRN MEDS ORDERED. DL PICC IN PLACE WITHOUT ISSUES. FALL PRECAUTIONS IN PLACE. EDUCATED PT TO CALL IF NEEDS ARISE. CALL LIGHT IN PLACE. WILL CONTINUE TO MONITOR. PT ALL AROUND UNHAPPY WITH CARE. STATES PAIN NEEDS TO BE ADDRESSED. I HAVE TRIED TO COMMUNICATE THIS TO THE DR. HE IS AWARE. WAITING FOR ORTHO TO SEE PT.
[2020-05-30 20:41] VITALS: BP 124/67
[2020-05-31 05:59] LABS: HEMOGLOBIN 10.4 gm/dL (12.0-15.0); MCH 26.7 pg (26.0-34.0); MCHC 32.6 g/dL (28.0-37.0); MCV 81.7 fL (80.0-100.0); RBC 3.92 mil/uL (4.20-5.00); RDW 15.6 % (10.5-14.5); WBC 12.2 thou/uL (4.0-11.0)
--- NOTE | 2020-05-31 06:06 | NUR ---
ASSUMED PT CARE AT 1922. PT IS A&OX4. PT COMPLAINS OF PAIN. MEDS ADMINISTERED. PT STATES THAT THE AMOUNT OF MEDICINE DOES NOT HELP THE PAIN BECAUSE SHE TAKES A LOT MORE AT HOME. PT STATES THAT HYDROCODONE IS NOT EFFECTIVE. PT HAS A LINE THAT DRAWS SLOW AND IS PATENT. PT CALLS OUT INAPROPRIATELY FOR PAIN MEDICATION. PT IS NEEDY. PT GETS UPSET WHEN YOU DO NOT COME TO THE ROOM SOON SHE CALLS. PT REFUSES TO US A REGULAR WALKER EVEN THOUGH DIRECTED BY THE DOCTOR TO NOT USE THE WHEELY WALKER AND TO USE THE HOSPITAL STAND UP WALKER. PT IS ON THE PHONE YELLING AT FAMILY. PT STATES THAT SHE IS RECORDING THE STAFF. INFORMED THAT THAT IS NOT LEGAL. SHE STATES THAT SHE DOES NOT CARE. PT VERBALLY ABUSES STAFF. PT STATES THAT SHE WILL NOT CALL OUT TO THE STAFF UNTIL THE NEXT SHIFT. WILL CONTINUE TO MONITOR.
[2020-05-31 06:49] LABS: CALCIUM 9.3 mg/dL (8.5-10.1); CREATININE 0.6 mg/dL (0.6-1.0)
[2020-05-31 07:35] VITALS: BP 133/64
--- NOTE | 2020-05-31 20:46 | NUR ---
Assumed pt care this am, contantly has issues with staff and services. Pain is partially relived want to have hedications on the dot. Mentioned she will talk to the doctor and would like a pain pump in placevs calling the nurses for the meds. Pt would express her discontent with the night staff and made me hear the recording she tokk of the staff talking. Pt made it clear that she only wants her RN entering the room and would like no oneelse. Son came to visit, took a stroll aropund the unit on the WC with her son. dressing on her right foot is c/d/i. POC folowed, leg elevated with several pillow, PICC line care done. Informed MD of pt's feedback and requests for more pain meds and alprazolam.
--- NOTE | 2020-06-01 05:37 | NUR ---
ASSUME CARE OF PT AT 1900HRS. PT AOX4 AND LETS NEEDS BE KNOWN. FALL PRECAUTION IN PLACE. PT REPORTED PAIN AND WAS TREATED WITH PRN PAIN MEDS. PT IS POST OP DAY 2. LLE DRESSING INTACT. SEROSANGUINOUS DISCHARGE NOTED. PT ABLE TO MOVE TOES. PT DENIED NAUSEA OR SOA. VSS AND NO S/S OF ACUTE DISTRESS. WILL CONTINUE TO MONITOR.
[2020-06-01 07:53] VITALS: BP 90/54
[2020-06-01 16:03] VITALS: BP 104/63
--- NOTE | 2020-06-01 18:28 | NUR ---
ASSUMED CARE AT 0700. PT IS ALERT AND ORIENTED. COMPLAINING OF PAIN, COMPLIANING ABOUT HER DRESSING DRAINAGE. VSSA/RA. PAIN MEDS GIVEN ORDERED. TOLERATING DIET. GI/ NML. PICC IN PLACE WITHOUT ISSUES. DRESSING WITH DRAINAGE THIS AM. ORTHO CAME AND TOOK OFF BANDAGE, REPLACED WITH ABD, KERLIX AND VIDHYA WRAP. JANINA IN PLACE. PICTURE TAKEN, PLACED IN CHART. PT USES BSC ON OWN WITHOUT HELP. EDUCATED PT TO CALL IF NEEDED, CALL LIGHT IN PLACE. WILL CONTINUE TO MONITOR
[2020-06-01 19:35] VITALS: BP 125/65
--- NOTE | 2020-06-02 04:18 | NUR ---
care assumed at around 2200. patient asking for pain meds every 2 hours. patient rude to staff this shift. patient records staff on her cell phone and patient knows she is not suppost to record staff. patient threw water pitcher on the floor. patient told this nurse to give her a new pitcher because she dont trust the staff here. juice and water offered. patient needs met this shift. patient encouraged fluids. patient calls her mother and dye house worker that she is not getting meds on time, even when this nurse explains she was attending to other patients. patient encouraged fluids. pain controlled this shift. patient lle dressing is c/d/i. fall precaution in place. patient in bed asleep at this time breathing regular and unlaboured.
[2020-06-02 06:17] VITALS: BP 125/69
[2020-06-02 08:59] LABS: HEMATOCRIT 32.6 % (37.0-47.0); MCHC 33.7 g/dL (28.0-37.0); MCV 80.2 fL (80.0-100.0); RBC 4.07 mil/uL (4.20-5.00); RDW 15.5 % (10.5-14.5); WBC 9.8 thou/uL (4.0-11.0)
--- NOTE | 2020-06-02 14:28 | NUR ---
CM CALLED AND SPOKE WITH PT THIS MORNING. CM ASKED IF PT WAS INTERESTED IN BEING ASSESSED FOR POSSIBLE ACUTE REHAB STAY UPON DC. CM EXPLAINED ACUTE REHAB LEVEL OF CARE AND THE PROVIDERS IN THE AREA. CARE TEAM INDICATED THAT PT WOULD HAVE NEED FORCONTINUED IV ABX, WOUND CARE, AND THERAPY SERVICES. PT WANTED TO DISCUSS IT WITH FAMILY BUT IS AGREEABLE TO BEING ASSESSED. 5N CONSULT ENTERED. CM TO FOLLOW INDICATED WITH DC PLANNING.
[2020-06-02 15:26] VITALS: BP 120/60
--- NOTE | 2020-06-02 16:49 | HC ---
[facility] [place] [address] CONSULTATION Name: L[address] [facility] Room #: 458-P ADM IN M.R.#: [id number] Admission: 05/27/20 Attend Phys: Dhruv Casillas MD Discharge: Date of : 80 Report #: [id number] THIS REPORT FOR: cc: [facility] - No family physician/PCP [facility] - No family physician/PCP Henry Millan MD ~ CC: [facility] physician/PCP Dhruv Casillas DATE OF SERVICE: 05/28/2020 CHIEF COMPLAINT: Cellulitis to the left foot. HISTORY OF PRESENT ILLNESS: This is a 39-year-old female patient who has a history of diabetes and morbid obesity. Apparently was possibly scratched or possibly bitten by a raccoon. Apparently, her brother had captured 2 immature raccoons from the wall and raising them in a cage. The raccoons apparently have been friendly, but did either scratch her or possibly bite her. She feels she was lightly bitten on the left upper extremity and may have been scratched on her left second toe. Over the ensuing 7 days, she has had increasing pain, swelling, and redness involving the foot as well as development of fever. She has been admitted to the hospital and started on intravenous antibiotics at this time. She has an MRI study of the left foot that is ordered, but is pending. She states that it is difficult to put any weight on the foot and is very tender when anyone touches it. PAST MEDICAL HISTORY: Positive history of thyroid cancer, hypertension, anxiety, gastroesophageal reflux disease, bipolar disorder, and hidradenitis. She has had a history of an adrenal tumor, asthma, seasonal allergies, type 2 diabetes mellitus, fibromyalgia and chronic pain. PAST SURGICAL HISTORY: She has had previous hysterectomy, thyroidectomy, incision and drainage of the right axilla and previous left Achilles repair. SOCIAL HISTORY: The patient is a daily smoker, 15 plus pack year history. She frequently uses marijuana. Occasional alcohol use. FAMILY HISTORY: Positive for heart disease and diabetes. ALLERGIES: ADHESIVE, AMOXICILLIN, HALDOL, LATEX, MORPHINE, PENICILLIN, TAPE, TRAMADOL, COMPAZINE AND PROPOFOL. MEDICATIONS: Include albuterol, hydromorphone, Zofran, oral clindamycin. She has been started on vancomycin and meropenem here in the hospital. REVIEW OF SYSTEMS: [address] [place] [address] CONSULTATION Name: L[address] MCCRARY Room #: 458-P [facility] IN M.R.#: [id number] Admission: 05/27/20 Attend Phys: Dhruv Casillas MD Discharge: Date of : 80 Report #: [id number] CONSTITUTIONAL: The patient does complain of fever and chills. She has had apparently 100-pound weight loss in order to better control her diabetes. EYES: The patient denies any visual changes, redness or drainage. ENT: The patient denies earache, nasal drainage, sore throat. CARDIOVASCULAR: The patient denies chest pain, palpitations or diaphoresis. PULMONARY: The patient denies cough or shortness of breath. GASTROINTESTINAL: The patient denies nausea, vomiting, diarrhea or abdominal pain. ORTHOPEDIC: The patient complains of severe pain, swelling, redness of her left lower extremity. Other systems in a 14-point review of systems are negative. PHYSICAL EXAMINATION: VITAL SIGNS: At this time include temperature 38.3, pulse 91, respiratory rate 14, and blood pressure 110/58. GENERAL: This is a somewhat well-developed, well-nourished female patient who appears to be in moderate discomfort. HEENT: Head normocephalic. Nose and throat clear. NECK: Supple. LUNGS: Clear. HEART: Regular. ABDOMEN: Soft. Bowel sounds present. EXTREMITIES: Lower extremities demonstrate easily palpable distal pulses. She has significant tenderness, redness and swelling to the left foot, more prominent on the dorsal lateral aspect of the foot, but overall the foot is globally swollen and very, very tender. I cannot find any areas that are specifically fluctuant. It is warm as well as red in addition to the swelling. NEUROLOGIC: The patient is alert and oriented and appropriate. LABORATORY DATA: Include an initial white blood cell count of 19.1 with a repeat showing 14.4, hemoglobin is 12.5, and hematocrit 38.2. Sodium 135, potassium 3.6, chloride 98, CO2 25, BUN 10, creatinine 0.7, and glucose is 136. TSH is 28.8. Procalcitonin is 1.03. COVID-19 is negative. MRI is ordered and pending at this time. CLINICAL IMPRESSION: 1. Cellulitis of the left foot, deeper space infection/abscess cannot be excluded. 2. Type 2 diabetes mellitus. 3. History of thyroid cancer. 4. Morbid obesity. RECOMMENDATIONS: At this point in time, I would recommend that the foot be left open to air. There are no open wounds at this time compression. I think it would be contraindicated due to the level of infection as well as I do not feel she would tolerate this. She may require surgical intervention. Orthopedic has [facility] [address] [place] [address] CONSULTATION Name: L[address] [facility] Room #: 458-P ADM IN M.R.#: [id number] Admission: 05/27/20 Attend Phys: Dhruv Casillas MD Discharge: Date of : 80 Report #: [id number] been consulted. I think that we need to review her MRI as soon as it can be accomplished to better evaluate for deep space infection and possible abscess. I appreciate being asked to see her in consultation. <ELECTRONICALLY SIGNED> By: Henry Millan MD 06/02/20 1649 [id number] Henry Millan MD /nt
[2020-06-02 20:52] VITALS: BP 106/57
--- NOTE | 2020-06-02 21:29 | NUR ---
Assumed patient care at 0715. Vital signs stable, LSCTA, ABD soft and non-tender, BS x's 4. LLE is wrapped in Alber Bandage with Fortino Drain. Patient has been complaining of pain throughout the entire shift. She asked this nurse to call Dr Medina, as she wanted him to come back to the unit to visit with her. Patient also was talking about needing a Morphine Pump. This nurse relayed message to Dr Medina, informing him of the above. Dr Medina stated "we are not increasing her pain medications." This nurse infromed patient of what Dr Medina said; she became verbally hostile, denying that she had even mentioned the Morphine Pump. Patient would call every 2 hours requesting pain medications. This nurse was always in with another patient and was unable to go to her room right away. This increased patient's anger and hostility and she would continue to call until she "got her way." Patient also had her son coming to the nurses station. This nurse asked PADMAJA Reyes to pass patient's medications for the rest of this shift, as Amy came later this am to assist with patient load. Report given to on-coming nurse.
--- NOTE | 2020-06-03 06:00 | NUR ---
Pt. rested quietly during the night when checked on during frequent rounds. Continues to c/o chronic pain to her left lower extremity and pain meds given often (see emar) with some relief of pain noted. Dressing to left lower foot is clean, dry and intact.
[2020-06-03 07:40] VITALS: BP 106/52
[2020-06-03 08:04] LABS: HEMATOCRIT 33.7 % (37.0-47.0); HEMOGLOBIN 10.9 gm/dL (12.0-15.0); MCH 26.6 pg (26.0-34.0); MCHC 32.3 g/dL (28.0-37.0); MCV 82.5 fL (80.0-100.0); RBC 4.09 mil/uL (4.20-5.00); RDW 15.9 % (10.5-14.5); WBC 9.3 thou/uL (4.0-11.0)
[2020-06-03 08:23] LABS: CALCIUM 9.7 mg/dL (8.5-10.1); CREATININE 0.7 mg/dL (0.6-1.0); POTASSIUM 4.6 mmol/L (3.5-5.1)
[2020-06-03 15:15] VITALS: BP 142/63
--- NOTE | 2020-06-03 16:17 | NUR ---
5N ASSESSED AND INDICATED THAT PT COULD SAFTELY DC HOME WITH HH NURSING, HCBS, AND IV ABX AND THAT SHE DIDN'T REQUIRE ACUTE REHAB SERVICES. NOTE INDICATES THAT PT HAD EXPRESSED PREFERENCE TO RETURN HOME WITH HOME INFUSION SERVICES. CM CALLED AND SPOKE WIHT PT AND INDICATED THE ABOVE. PT INDICATED THAT DR. ALBRIGHT WANTED HER TO GO SOMEWHERE. CM ASKED IF REFERRAL COULD BE SENT TO ANOTHER ACUTE REHAB FOR REVIEW FOR POSSIBLE SERVICES AND PT AGREED. REFERRAL SENT TO [facility] FOR REVIEW. AWAITNG RESPONSE. SHOULD THEY DETERMINE THAT PT DOESN'T NEED ACUTE REHAB SERVIES OR IS MEDICAID DENIES AUTH PT WOULD NEED TO DC HOME WITH HOME INFUSION, HH NURSING, AND HCBS. CM TO FOLLOW INDICATED WITH DC PLANNING.
[2020-06-03 20:25] VITALS: BP 120/57
--- NOTE | 2020-06-03 20:58 | NUR ---
Assumed pt care this am, pain is managed with medications partial relief is noted, wants pain meds on the dot. POC followed, complains of the medications not being given on time. Informed night sihft of the new medications faxed by her personal nurse that she wants restarted. Spoke to the mother and wants to be speak to the md regarding new pain on thje left foot and calf. endorsed to the night nurse.
[2020-06-04] VITALS (7 sets, daily range): BP systolic 98–129; BP diastolic 52–69
[2020-06-04] MEDS ORDERED: CEVIMELINE HCL30 MG PO (00:59)
--- NOTE | 2020-06-04 07:29 | NUR ---
ASSUMED CARE OF PT AT 1900HRS. PT AOX4 AND LETS NEEDS BE KNOWN. PT REPORTED PAIN AND WAS MEDICATED AROUND THE CLOCK WITH SOME SUCCESS. PT REPORTED ITCHING AND MED PROVIDED. ASSESSMENT CHARTED. PT HAD A LOW GRADE FEVER THAT LATER RESOLVED. ABX TREATMENT CONTINUED. VSS AND NO S/S OF ACUTE DISTRESS. WILL CONTINUE TO MONITOR.
--- NOTE | 2020-06-04 09:19 | NUR ---
FAXED REFERRAL TO [facility] RECEIVED CONFIRMATION AND LEFT MSG WITH CARA IN ADM. DP TO FOLLOW.
--- NOTE | 2020-06-04 12:36 | NUR ---
FAXED REFERRAL TO [facility] SPOKE WITH MER IN INTAKE SHE RECEIVED REFERRAL AND WILL ACCEPT.
--- NOTE | 2020-06-04 14:37 | NUR ---
PT ALERT AND ORIENTED TIMES FOUR. PT SON CAME TO THE NURSE STATION TO ASK FOR HELP GETTING HIS MOM OFF THE FLOOR DUE TO FALL. PT SON WITNESSED THE FALL. THIS NURSE FOUND PT SITTING ON THE FLOOR. PT STATES SHE WAS GETTING OUT OF THE CHAIR AND HIT HER SCOOTER ON THE BEDSIDE TABLE AND SHE FELL. PT ALSO STATES SHE HIT HER HEAD ON THE WALL DURING THE FALL. NO BUMPS OR BRUISES NOTED ON PT. DR NOTIFIED. NEURO CHECKS ORDERED. PRN PAIN AND ANXIETY MEDICATIONS GIVEN.
--- NOTE | 2020-06-04 16:32 | NUR ---
PT NO CANDIDATE FOR ACUTE REHAB CM NOTIFIED PT AND SHE INDICATED SHE WOULD PREFER TO DC HOME [facility] AND HOME [facility]ION[facility]. CM SENT REFERRAL TO [facility]. PT HAS $35 DOLLARS PER DAY COPAY FOR SUPPLIES. PT INDICATED SHE CAN'T AFFORD THAT BUT DOESN'T WANT TO GO TO A FACILITY SO IS AGREEABLE TO PAYMENT PLAN. STILL AWAITING FINAL DC IV ABX RECS FROM DR. ALBRIGHT. CM ATTEMPTED TO ORDER PT A BSC THROUGH MEDICAID AND THEY INDICATED THAT PT HAD GOTTEN ONE IN THE PAST AND THEY NEED TO KNOW WHAT HAPPENED TO IT. CM TO FOLLOW UP WITH CARE TEAM AND PT ONE ALL NEEDS AE IN PLACE.
--- NOTE | 2020-06-05 04:40 | NUR ---
Assumed pt care at 1900. Pt's A/OX4,VSS. Neuro checks intact sp fall earlier. Pt c/o pain to LLE medicated per EMAR with some relief reported. Pt tearful over dc plans/insuarance issues;states she can't afford to pay daily and doesn't want to go to a SNF 1:1 reassurance provided. rounded on pt at HS,woundcare/pics taken, area swollen/boggy and warm to touch. Pt asking for bed alarm to be turned off;reminded she fell yesterday and is now considered a fall risk pt;encouraged to use walker over scooter but hesitant to. Double PICC on LUE,patent with blood return. Resting quietly w/o any distress noted. Will continue to monitor pt.
[2020-06-05 07:33] VITALS: BP 90/38
--- NOTE | 2020-06-05 11:38 | NUR ---
CM FOLLOWED UP WITH PT THIS AM AND REITERATED THAT WE WERE WAITING ON FINAL DC RECS FOR IV HOME INFUSION. CM INDICATED THAT CM HAD INQUIRED WITH [facility] TO WHY SHE MAY NOT HAVE PAID ANYTHING OUT OF POCKET FOR PAST HOME INFUSION SERVICE THROUGH [facility]. IT HAD BEEN INDICATED THAT [facility] HAS THEIR OWN INFUSION COMPANY AND THAT THEY LIKELY ATE THE COST OF PT'S SUPPLIES IT WAS CHEAPER THEN HER STAYING INPATIENT. PT WASN'T PARTICULARLY PLEASED WITH THIS EXPLAINATIION AND SHE INDICATED THAT SHE STILL COULDN'T AFFORD THE $35.00 A DAY SUPPLY COST. CM AGAIN INDICATED THAT PT WOULD APPLY FOR [facility]'S FINANCIAL HARDSHIP RELIEF PROGRAM AND LIKELY MAKE MANAGEABLE PAYMENTS AND THAT CM COULD APPLY FOR $500.00 TRENT THROUGH THE [employer]. CM APPLIED FOR TRENT ON PT'S BEHALF. PT'S MOTHER CALLED AND ASKED ABOUT WHAT WAS GOING ON. CM INDICATED ALL THE ABOVE. CM REACHED OUT TO [facility] LIAISON TO SEE IF SHE HAD ANY IDEA TO WHAT THEIR PAYMENT PLANS USUALLY LOOK LIKE TO BE ABLE TO INFORM PT. CM TO FOLLOW INDICATED WITH DC PLANNING.
--- NOTE | 2020-06-05 13:57 | NUR ---
Nutrition follow up: No new nutrition changes in the last week. Pt is eating exceptionally well. All this week, completing 75-100% meals, with majority at 100% completion rate. 3 day meal average of ~97% on a regular diet. Receiving Ensure Enlive BID initially at pt request in case appetite was inconsistent or pt didn't like foods. Will reduce frequency to only 1x/day now to minimize additional kcals, given adequate meal intakes and high BMI. Pt anticipating discharge soon once IV antibiotics finalized and outpatient infusion set up. She is s/p L foot debridement last week for wound. No new nutrition needs. Remains low nutrition risk as protein/nutrition ed already completed.
[2020-06-05] MEDS ORDERED: ACETAMINOPHEN325 M1 PO (15:24)
[2020-06-05] MEDS ORDERED: NORCO 10-325 T1 EACH PO (15:24)
[2020-06-05] MEDS ORDERED: VANCOMYCIN1.25 GM/22 IV (15:24)
[2020-06-05] MEDS ORDERED: MUCINEX600 MG PO (15:24)
[2020-06-05] MEDS ORDERED: FLORANEX GRANU1 EACH PO (15:24)
[2020-06-05] MEDS ORDERED: CYMBALTA20 MG PO (15:24)
[2020-06-05 15:28] VITALS: BP 98/52
--- NOTE | 2020-06-05 15:39 | NUR ---
Assumed pt care at 7am.Pt in bed with left foot elevated.Assessment completed. vss. Pt tolerated meds and diet but constantly calling out for pain shot. Pt rated her foot pain 8/10. Dilaudid ivp given q4h as needed with partial relief.Dr Garcia and Bairon here,dc order noted.Pt wanted one dose of pain shot before dc home.Dr Waddell notified but he said if pt dc before 1800,no pain shot will be given,but if closer to 1730,it should be given.Dc summary compile and reviewed with pt.Will dc home with picc line when ready this evening.
[2020-06-05 15:50] VITALS: BP 98/52
--- NOTE | 2020-06-05 16:24 | NUR ---
CARE RED INDICATED THAT PT IS MEDIALLY STABLE TO DC HOME THIS DAY. PT TO HAVE IV ABX THROUGH [facility] THEY DID BEDSIDE TEACH DONE THIS DAY. ORDERS FAXED TO [facility] AND [facility]. CM ORDERED [facility] BEDSIDE [facility]. PT'S SON TO PROVIDE TRANPRORT HOME. NO OTHER CM INTERVENTION INDICATED. CASE CLOSED.
--- NOTE | 2020-06-05 16:33 | NUR ---
FAXED DC ORDERS/SUMMARY TO [facility] SPOKE WITH INTAKE THEY RECEIVED ORDERS AND WILL NOTIFY PT TIME 0F VISITS.
== END 2020-06-05 16:51 | disposition home health service (06) | DRG 854 ==
LOC: ER 16:17 → EROBS 18:18 → 3W 18:18 → 4W 05-28 18:19
PROVIDERS: Emergency Medicine; Hospitalist; Nurse Practitioner Family; ADMIT Internal Medicine; ATTEND Internal Medicine
PROC: 02HV33Z Insertion of Infusion Device into Superior Vena Cava, Percutaneous Approach (ICD-10-PCS; 2020-05-29)
PROC: 0JDR0ZZ Extraction of Left Foot Subcutaneous Tissue and Fascia, Open Approach (ICD-10-PCS; principal; 2020-05-30)
DX: A41.9 Sepsis, unspecified organism (principal); L03.116 Cellulitis of left lower limb; L02.612 Cutaneous abscess of left foot; A52.16 Charcot's arthropathy (tabetic); E44.0 Moderate protein-calorie malnutrition; Z68.42 Body mass index [BMI] 45.0-49.9, adult; I10 Essential (primary) hypertension; G89.4 Chronic pain syndrome; F31.9 Bipolar disorder, unspecified; K21.9 Gastro-esophageal reflux disease without esophagitis; E89.0 Postprocedural hypothyroidism; E66.01 Morbid (severe) obesity due to excess calories; F41.9 Anxiety disorder, unspecified; J45.909 Unspecified asthma, uncomplicated; E11.42 Type 2 diabetes mellitus with diabetic polyneuropathy; F12.10 Cannabis abuse, uncomplicated; B95.62 Methicillin resistant Staphylococcus aureus infection as the cause of diseases classified elsewhere; M79.7 Fibromyalgia; Z20.828 Contact with and (suspected) exposure to other viral communicable diseases; Z79.891 Long term (current) use of opiate analgesic; Z90.710 Acquired absence of both cervix and uterus; L73.2 Hidradenitis suppurativa; W55.51XA Bitten by raccoon, initial encounter; Y93.89 Activity, other specified; Y92.89 Other specified places as the place of occurrence of the external cause; Y99.8 Other external cause status; Z85.850 Personal history of malignant neoplasm of thyroid; Z88.0 Allergy status to penicillin; Z88.8 Allergy status to other drugs, medicaments and biological substances; Z88.6 Allergy status to analgesic agent; Z91.040 Latex allergy status; Z82.49 Family history of ischemic heart disease and other diseases of the circulatory system; Z83.3 Family history of diabetes mellitus; Z71.41 Alcohol abuse counseling and surveillance of alcoholic; Z91.19 Patient's noncompliance with other medical treatment and regimen; Z79.899 Other long term (current) drug therapy; Z23 Encounter for immunization
CPT/HCPCS: 10040; 10080; 27000; 50010; 50386; 56525; 57091; 57179; 62110; 62900

== ENCOUNTER → 2020-05-27 | Outpatient (CLI) | payer OTHER ==
[~2020-05-27] MED LIST changes: +DILAUDID4 MG PO; +LEXAPRO20 MG PO; +SINGULAIR 10 MG10 MG PO; +SYNTHROID100 MC1 PO; +ZYRTEC10 M2 PO
== END ==
LOC: ULTRA 10:34
PROVIDERS: ATTEND Orthopaedic Surgery Foot and Ankle Surgery
DX: R60.1 Generalized edema (principal); M79.89 Other specified soft tissue disorders

== ENCOUNTER → 2020-07-03 | Outpatient (CLI) | payer OTHER ==
[~2020-07-03] MED LIST changes: +ACETAMINOPHEN325 M1 PO; +CEVIMELINE HCL30 MG PO; +CYMBALTA20 MG PO; +FLORANEX GRANU1 EACH PO; +MUCINEX600 MG PO; +NORCO 10-325 T1 EACH PO; +VANCOMYCIN1.25 GM/22 IV
== END ==
LOC: HYPER 06-19 12:01
PROVIDERS: ATTEND Emergency Medicine
DX: T81.31XA Disruption of external operation (surgical) wound, not elsewhere classified, initial encounter (principal); E11.621 Type 2 diabetes mellitus with foot ulcer; L97.521 Non-pressure chronic ulcer of other part of left foot limited to breakdown of skin; L03.116 Cellulitis of left lower limb; L02.416 Cutaneous abscess of left lower limb; L73.2 Hidradenitis suppurativa; R60.0 Localized edema; E11.69 Type 2 diabetes mellitus with other specified complication; M86.672 Other chronic osteomyelitis, left ankle and foot; E11.610 Type 2 diabetes mellitus with diabetic neuropathic arthropathy; E11.40 Type 2 diabetes mellitus with diabetic neuropathy, unspecified; E66.01 Morbid (severe) obesity due to excess calories; E03.9 Hypothyroidism, unspecified; I10 Essential (primary) hypertension; G89.4 Chronic pain syndrome; F11.90 Opioid use, unspecified, uncomplicated; F10.19 Alcohol abuse with unspecified alcohol-induced disorder; F17.200 Nicotine dependence, unspecified, uncomplicated; F31.9 Bipolar disorder, unspecified; F12.10 Cannabis abuse, uncomplicated; F41.9 Anxiety disorder, unspecified; Z85.850 Personal history of malignant neoplasm of thyroid; Z90.710 Acquired absence of both cervix and uterus; Z79.4 Long term (current) use of insulin; K21.9 Gastro-esophageal reflux disease without esophagitis; Y92.89 Other specified places as the place of occurrence of the external cause; Y83.8 Other surgical procedures as the cause of abnormal reaction of the patient, or of later complication, without mention of misadventure at the time of the procedure

== ENCOUNTER 2020-07-11 18:59 | Inpatient (IN) | payer OTHER ==
[~2020-07-11] VITALS: Ht 170.2 cm; Wt 127.0 kg
--- NOTE | 2020-07-11 19:29 | NUR ---
REPORTS HOME HEALTH NURSE TESTED POSITIVE FOR COVID. HAS NOT BEEN ABLE TO GET HOLD OF DR ALBRIGHT TODAY, STATES MOTHER IS IN CANCER TREATMENT. REPORTS SHE IS VERY STRESSED
[2020-07-11 19:35] VITALS: BP 124/98
[2020-07-11] MEDS ORDERED: ROXICODONE15 MG PO (19:43)
[2020-07-11 22:01] LABS: ABSOLUTE NEUTROPHILS 5.3 thou/uL (1.4-8.2); BASOPHILS 0.7 % (0.0-2.0); EOSINOPHILS 1.6 % (0.0-3.0); HEMATOCRIT 36.9 % (37.0-47.0); HEMOGLOBIN 12.6 gm/dL (12.0-15.0); LYMPHOCYTES 26.6 % (24.0-44.0); MCH 26.6 pg (26.0-34.0); MCHC 34.2 g/dL (28.0-37.0); MCV 77.7 fL (80.0-100.0); MONOCYTES 6.3 % (1.0-8.0); PLATELET COUNT 284 thou/uL (150-400); POLYS 64.8 % (36.0-66.0); RBC 4.75 mil/uL (4.20-5.00); RDW 15.2 % (10.5-14.5); WBC 8.1 thou/uL (4.0-11.0)
[2020-07-11 23:17] LABS: CALCIUM 8.7 mg/dL (8.5-10.1); CREATININE 0.7 mg/dL (0.6-1.0); POTASSIUM 3.8 mmol/L (3.5-5.1)
[2020-07-11 23:37] LABS: ALBUMIN 3.3 g/dL (3.4-5.0); TOTAL BILIRUBIN 0.3 mg/dL (0.2-1.0); TOTAL PROTEIN 7.9 g/dL (6.4-8.2)
[2020-07-12 00:29] VITALS: BP 116/49
[2020-07-12 01:23] VITALS: BP 130/69
[2020-07-12 01:24] VITALS: BP 116/49
[2020-07-12 04:04] VITALS: BP 102/62
--- NOTE | 2020-07-12 04:12 | NUR ---
ASSUMED CARE OF PT FROM ED AT 0120HRS. PT AOX4 AND LETS NEEDS BE KNOWN. PT IS INDEPENDENT. PT WAS ORIENTED TO HER ROOM AND THE UNIT. PT WAS ABLE TO ANSWER ALL ADMISSION RELATED QUESTIONS AND SIGN CONSENTS. ASSESSMENT CHARTED. PT HAS A LEFT FOOT WOUND, PICTURE TAKEN. PT REPORTS PAIN OF 8/10. PRN MEDS PROVIDED. PT PLACED ON ISOLATION PENDING COVID 19 RESULTS. PT HAD A TEMP OF 99.2 BUT OTHER VSS. ORDERS RECEIVED AND STARTED. WILL CONTINUE TO MONITOR FOR CHANGES.
[2020-07-12 06:26] LABS: HEMATOCRIT 36.1 % (37.0-47.0); HEMOGLOBIN 12.1 gm/dL (12.0-15.0); MCH 26.3 pg (26.0-34.0); MCHC 33.5 g/dL (28.0-37.0); MCV 78.7 fL (80.0-100.0); RBC 4.59 mil/uL (4.20-5.00); RDW 14.9 % (10.5-14.5); WBC 7.1 thou/uL (4.0-11.0)
[2020-07-12 06:39] LABS: CALCIUM 8.6 mg/dL (8.5-10.1); CREATININE 0.6 mg/dL (0.6-1.0); MAGNESIUM 2.1 mg/dL (1.8-2.4)
[2020-07-12 07:42] VITALS: BP 111/63
--- NOTE | 2020-07-12 17:03 | NUR ---
Patient left AMA during this visit. states she going to another hospital where they will address her needs. she had wanted Provider notified that patient wanted more pain medications mely. IV delaudid. PATIENT STATED THAT IS ALL THAT WILL HELP HER. EDUCATED PATIENT ON NEED TO USED MIXED MEDICATION.
== END 2020-07-12 10:53 | disposition left against medical advice (07) | DRG 603 ==
LOC: ER 18:59 → EROBS 23:36 → 3W 07-12 01:15
PROVIDERS: Nurse Practitioner Family; Physician Assistant; ADMIT Hospitalist; ATTEND Hospitalist
PROC: 05HY33Z Insertion of Infusion Device into Upper Vein, Percutaneous Approach (ICD-10-PCS; principal; 2020-07-12)
DX: L03.116 Cellulitis of left lower limb (principal); I10 Essential (primary) hypertension; E11.40 Type 2 diabetes mellitus with diabetic neuropathy, unspecified; F12.90 Cannabis use, unspecified, uncomplicated; F41.9 Anxiety disorder, unspecified; G89.29 Other chronic pain; F31.9 Bipolar disorder, unspecified; E89.0 Postprocedural hypothyroidism; F17.210 Nicotine dependence, cigarettes, uncomplicated; K21.9 Gastro-esophageal reflux disease without esophagitis; G47.00 Insomnia, unspecified; J45.909 Unspecified asthma, uncomplicated; Z20.828 Contact with and (suspected) exposure to other viral communicable diseases; Z53.29 Procedure and treatment not carried out because of patient's decision for other reasons; Z85.850 Personal history of malignant neoplasm of thyroid; Z90.710 Acquired absence of both cervix and uterus; Z88.0 Allergy status to penicillin; Z88.8 Allergy status to other drugs, medicaments and biological substances; Z88.1 Allergy status to other antibiotic agents; Z91.040 Latex allergy status; Z86.14 Personal history of Methicillin resistant Staphylococcus aureus infection; Z82.49 Family history of ischemic heart disease and other diseases of the circulatory system; Z83.3 Family history of diabetes mellitus

== ENCOUNTER → 2020-07-17 | Outpatient (CLI) | payer OTHER ==
[~2020-07-17] MED LIST changes: +ROXICODONE15 MG PO
== END ==
LOC: HYPER 13:39
PROVIDERS: ATTEND Emergency Medicine
DX: T81.31XD Disruption of external operation (surgical) wound, not elsewhere classified, subsequent encounter (principal); E11.621 Type 2 diabetes mellitus with foot ulcer; L97.522 Non-pressure chronic ulcer of other part of left foot with fat layer exposed; L02.416 Cutaneous abscess of left lower limb; L03.116 Cellulitis of left lower limb; L73.2 Hidradenitis suppurativa; R60.0 Localized edema; E11.40 Type 2 diabetes mellitus with diabetic neuropathy, unspecified; E11.610 Type 2 diabetes mellitus with diabetic neuropathic arthropathy; E66.01 Morbid (severe) obesity due to excess calories; E11.69 Type 2 diabetes mellitus with other specified complication; M86.672 Other chronic osteomyelitis, left ankle and foot; E03.9 Hypothyroidism, unspecified; G89.4 Chronic pain syndrome; I10 Essential (primary) hypertension; K21.9 Gastro-esophageal reflux disease without esophagitis; F31.9 Bipolar disorder, unspecified; F41.9 Anxiety disorder, unspecified; F10.19 Alcohol abuse with unspecified alcohol-induced disorder; F17.200 Nicotine dependence, unspecified, uncomplicated; F11.90 Opioid use, unspecified, uncomplicated; F12.10 Cannabis abuse, uncomplicated; Z79.4 Long term (current) use of insulin; Z85.850 Personal history of malignant neoplasm of thyroid; Z68.41 Body mass index [BMI] 40.0-44.9, adult; Y83.8 Other surgical procedures as the cause of abnormal reaction of the patient, or of later complication, without mention of misadventure at the time of the procedure

== ENCOUNTER 2020-07-25 14:14 | Emergency (ER) | payer OTHER ==
[~2020-07-25] VITALS: Ht 170.2 cm; Wt 136.1 kg
[2020-07-25] MEDS ORDERED: DILAUDID 4 MG TA4 M1 PO (14:43)
[2020-07-25] MEDS ORDERED: ALPRAZOLAM2 MG PO (14:44)
[2020-07-25] MEDS ORDERED: ESCITALOPRAM OX20 MG PO (14:45)
[2020-07-25] MEDS ORDERED: REGLAN 5 MG TAB5 MG PO ×2 (16:30→16:31)
[2020-07-25 16:48] VITALS: BP 155/82
== END 2020-07-25 16:50 | disposition home or self-care (01) ==
LOC: ER 14:14
DX: T82.524A Displacement of infusion catheter, initial encounter (principal); G43.909 Migraine, unspecified, not intractable, without status migrainosus; I10 Essential (primary) hypertension; E11.9 Type 2 diabetes mellitus without complications; M79.7 Fibromyalgia; E11.42 Type 2 diabetes mellitus with diabetic polyneuropathy; F17.210 Nicotine dependence, cigarettes, uncomplicated; Z85.850 Personal history of malignant neoplasm of thyroid; Z79.899 Other long term (current) drug therapy; Z79.2 Long term (current) use of antibiotics; Z91.048 Other nonmedicinal substance allergy status; Z88.1 Allergy status to other antibiotic agents; Z88.8 Allergy status to other drugs, medicaments and biological substances; Z91.041 Radiographic dye allergy status; Z88.5 Allergy status to narcotic agent; Z88.0 Allergy status to penicillin; Y83.8 Other surgical procedures as the cause of abnormal reaction of the patient, or of later complication, without mention of misadventure at the time of the procedure; Y92.89 Other specified places as the place of occurrence of the external cause

== ENCOUNTER → 2020-07-31 | Outpatient (CLI) | payer OTHER ==
[~2020-07-31] MED LIST changes: +ALPRAZOLAM2 MG PO; +DILAUDID 4 MG TA4 M1 PO; +ESCITALOPRAM OX20 MG PO; +REGLAN 5 MG TAB5 MG PO
== END ==
LOC: HYPER 13:42
PROVIDERS: ATTEND Emergency Medicine
DX: T81.31XD Disruption of external operation (surgical) wound, not elsewhere classified, subsequent encounter (principal); L03.116 Cellulitis of left lower limb; E11.621 Type 2 diabetes mellitus with foot ulcer; L97.522 Non-pressure chronic ulcer of other part of left foot with fat layer exposed; L84 Corns and callosities; L02.416 Cutaneous abscess of left lower limb; L73.2 Hidradenitis suppurativa; R60.0 Localized edema; E11.40 Type 2 diabetes mellitus with diabetic neuropathy, unspecified; E11.610 Type 2 diabetes mellitus with diabetic neuropathic arthropathy; E11.69 Type 2 diabetes mellitus with other specified complication; M86.672 Other chronic osteomyelitis, left ankle and foot; E66.01 Morbid (severe) obesity due to excess calories; E03.9 Hypothyroidism, unspecified; G89.4 Chronic pain syndrome; I10 Essential (primary) hypertension; K21.9 Gastro-esophageal reflux disease without esophagitis; F10.19 Alcohol abuse with unspecified alcohol-induced disorder; F17.200 Nicotine dependence, unspecified, uncomplicated; F12.10 Cannabis abuse, uncomplicated; F41.9 Anxiety disorder, unspecified; F11.90 Opioid use, unspecified, uncomplicated; Z79.4 Long term (current) use of insulin; Z68.41 Body mass index [BMI] 40.0-44.9, adult; Y83.8 Other surgical procedures as the cause of abnormal reaction of the patient, or of later complication, without mention of misadventure at the time of the procedure

== ENCOUNTER 2020-08-06 10:14 | Emergency (ER) | payer OTHER ==
[~2020-08-06] VITALS: Ht 170.2 cm; Wt 129.3 kg
[2020-08-06 11:15] LABS: ABSOLUTE NEUTROPHILS 5.4 thou/uL (1.4-8.2); BASOPHILS 0.5 % (0.0-2.0); EOSINOPHILS 0.7 % (0.0-3.0); HEMATOCRIT 40.2 % (37.0-47.0); HEMOGLOBIN 13.1 gm/dL (12.0-15.0); LYMPHOCYTES 22.6 % (24.0-44.0); MCH 25.3 pg (26.0-34.0); MCHC 32.7 g/dL (28.0-37.0); MCV 77.6 fL (80.0-100.0); MONOCYTES 6.3 % (1.0-8.0); PLATELET COUNT 319 thou/uL (150-400); POLYS 69.9 % (36.0-66.0); RBC 5.18 mil/uL (4.20-5.00); RDW 14.8 % (10.5-14.5); WBC 7.7 thou/uL (4.0-11.0)
[2020-08-06 11:20] LABS: URINE BILIRUBIN NEGATIVE (Negative); URINE BLOOD NEGATIVE (Negative); URINE CLARITY CLEAR; URINE COLOR YELLOW; URINE GLUCOSE-RANDOM* NEGATIVE (Negative); URINE KETONES TRACE (Negative); URINE LEUKOCYTES-REFLEX NEGATIVE (Negative); URINE NITRITE-REFLEX NEGATIVE (Negative); URINE PROTEIN (DIPSTICK) NEGATIVE (Negative); URINE SPECIFIC GRAVITY >= 1.030 (1.005-1.035); URINE UROBILINOGEN 0.2 E.U./dl (0.2-1.0)
[2020-08-06 11:28] LABS: CALCIUM 9.4 mg/dL (8.5-10.1); CREATININE 0.7 mg/dL (0.6-1.0); POTASSIUM 3.8 mmol/L (3.5-5.1)
[2020-08-06 11:34] LABS: ALBUMIN 3.5 g/dL (3.4-5.0); TOTAL BILIRUBIN 0.4 mg/dL (0.2-1.0); TOTAL PROTEIN 8.5 g/dL (6.4-8.2)
--- NOTE | 2020-08-06 12:07 | EKG ---
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
[2020-08-06 13:40] VITALS: BP 138/71
[2020-08-06] MEDS ORDERED: ZPAK PO (13:56)
== END 2020-08-06 14:15 | disposition home or self-care (01) ==
LOC: ER 10:14
PROVIDERS: Emergency Medicine; Physician Assistant
DX: I80.8 Phlebitis and thrombophlebitis of other sites (principal); L03.113 Cellulitis of right upper limb; R07.9 Chest pain, unspecified; R11.2 Nausea with vomiting, unspecified; I10 Essential (primary) hypertension; E11.9 Type 2 diabetes mellitus without complications; F17.210 Nicotine dependence, cigarettes, uncomplicated; Z79.899 Other long term (current) drug therapy; Z88.8 Allergy status to other drugs, medicaments and biological substances; Z88.0 Allergy status to penicillin; Z88.1 Allergy status to other antibiotic agents; Z91.048 Other nonmedicinal substance allergy status; Z91.040 Latex allergy status

== ENCOUNTER → 2020-08-07 | Outpatient (CLI) | payer OTHER | LOC: HYPER 13:39 | PROVIDERS: ATTEND Emergency Medicine | DX: T81.31XD Disruption of external operation (surgical) wound, not elsewhere classified, subsequent encounter (principal); E11.621 Type 2 diabetes mellitus with foot ulcer; L97.522 Non-pressure chronic ulcer of other part of left foot with fat layer exposed; E11.628 Type 2 diabetes mellitus with other skin complications; L03.116 Cellulitis of left lower limb; L02.416 Cutaneous abscess of left lower limb; E11.69 Type 2 diabetes mellitus with other specified complication; M86.672 Other chronic osteomyelitis, left ankle and foot; E11.40 Type 2 diabetes mellitus with diabetic neuropathy, unspecified; E11.610 Type 2 diabetes mellitus with diabetic neuropathic arthropathy; R60.0 Localized edema; L73.2 Hidradenitis suppurativa; G89.4 Chronic pain syndrome; L84 Corns and callosities; E03.9 Hypothyroidism, unspecified; I10 Essential (primary) hypertension; E66.01 Morbid (severe) obesity due to excess calories; F11.90 Opioid use, unspecified, uncomplicated; F31.9 Bipolar disorder, unspecified; F41.9 Anxiety disorder, unspecified; F10.19 Alcohol abuse with unspecified alcohol-induced disorder; F17.290 Nicotine dependence, other tobacco product, uncomplicated; Z79.4 Long term (current) use of insulin; Z86.14 Personal history of Methicillin resistant Staphylococcus aureus infection; Z85.850 Personal history of malignant neoplasm of thyroid; Y83.8 Other surgical procedures as the cause of abnormal reaction of the patient, or of later complication, without mention of misadventure at the time of the procedure ==

== ENCOUNTER → 2020-08-21 | Outpatient (CLI) | payer OTHER | LOC: HYPER 14:15 | PROVIDERS: ATTEND Emergency Medicine | DX: T81.31XD Disruption of external operation (surgical) wound, not elsewhere classified, subsequent encounter (principal); E11.621 Type 2 diabetes mellitus with foot ulcer; L97.522 Non-pressure chronic ulcer of other part of left foot with fat layer exposed; L03.116 Cellulitis of left lower limb; L02.416 Cutaneous abscess of left lower limb; E11.69 Type 2 diabetes mellitus with other specified complication; M86.672 Other chronic osteomyelitis, left ankle and foot; E11.610 Type 2 diabetes mellitus with diabetic neuropathic arthropathy; E11.40 Type 2 diabetes mellitus with diabetic neuropathy, unspecified; L73.2 Hidradenitis suppurativa; R60.0 Localized edema; G89.4 Chronic pain syndrome; E66.01 Morbid (severe) obesity due to excess calories; E03.9 Hypothyroidism, unspecified; I10 Essential (primary) hypertension; K21.9 Gastro-esophageal reflux disease without esophagitis; F31.9 Bipolar disorder, unspecified; F11.90 Opioid use, unspecified, uncomplicated; F10.19 Alcohol abuse with unspecified alcohol-induced disorder; F17.200 Nicotine dependence, unspecified, uncomplicated; F41.9 Anxiety disorder, unspecified; Z79.4 Long term (current) use of insulin; Z85.850 Personal history of malignant neoplasm of thyroid; Z68.41 Body mass index [BMI] 40.0-44.9, adult; Y83.8 Other surgical procedures as the cause of abnormal reaction of the patient, or of later complication, without mention of misadventure at the time of the procedure ==

== ENCOUNTER → 2020-10-02 | Emergency (ER) | payer OTHER ==
[~2020-10-02] VITALS: Ht 170.2 cm; Wt 137.4 kg
[2020-10-02 14:29] VITALS: BP 141/90
== END ==
LOC: ER 14:25
DX: Z71.1 Person with feared health complaint in whom no diagnosis is made (principal); I10 Essential (primary) hypertension; E11.9 Type 2 diabetes mellitus without complications; F17.210 Nicotine dependence, cigarettes, uncomplicated; Z79.2 Long term (current) use of antibiotics; Z79.899 Other long term (current) drug therapy; Z88.0 Allergy status to penicillin; Z88.1 Allergy status to other antibiotic agents; Z88.5 Allergy status to narcotic agent; Z91.040 Latex allergy status; Z91.048 Other nonmedicinal substance allergy status

== ENCOUNTER 2021-03-08 19:22 | Emergency (ER) | payer OTHER ==
[~2021-03-08] VITALS: Ht 170.2 cm; Wt 131.5 kg
[2021-03-08 19:56] LABS: URINE BILIRUBIN 2+ (Negative); URINE BLOOD NEGATIVE (Negative); URINE CLARITY SL CLOUDY; URINE COLOR YELLOW; URINE GLUCOSE-RANDOM* NEGATIVE (Negative); URINE KETONES TRACE (Negative); URINE LEUKOCYTES-REFLEX NEGATIVE (Negative); URINE NITRITE-REFLEX NEGATIVE (Negative); URINE PROTEIN (DIPSTICK) TRACE (Negative); URINE SPECIFIC GRAVITY >= 1.030 (1.005-1.035)
[2021-03-08 19:58] LABS: ICTOTEST (BILI CONFIRMATORY) Positive (Negative)
[2021-03-08 20:09] LABS: ABSOLUTE NEUTROPHILS 7.4 thou/uL (1.4-8.2); BASOPHILS 1.4 % (0.0-2.0); EOSINOPHILS 0.6 % (0.0-3.0); HEMATOCRIT 43.7 % (37.0-47.0); HEMOGLOBIN 14.7 gm/dL (12.0-15.0); LYMPHOCYTES 20.3 % (24.0-44.0); MCH 26.5 pg (26.0-34.0); MCHC 33.6 g/dL (28.0-37.0); MCV 78.8 fL (80.0-100.0); MONOCYTES 6.4 % (1.0-8.0); PLATELET COUNT 342 thou/uL (150-400); POLYS 71.3 % (36.0-66.0); RBC 5.54 mil/uL (4.20-5.00); WBC 10.3 thou/uL (4.0-11.0)
[2021-03-08 20:18] LABS: CALCIUM 9.7 mg/dL (8.5-10.1); CREATININE 0.9 mg/dL (0.6-1.0); POTASSIUM 3.4 mmol/L (3.5-5.1)
[2021-03-08 20:24] LABS: TOTAL BILIRUBIN 0.6 mg/dL (0.2-1.0); TOTAL PROTEIN 8.6 g/dL (6.4-8.2)
[2021-03-08] MEDS ORDERED: PHENERGAN 25 MG25 M1 PO (21:28)
[2021-03-08 21:38] VITALS: BP 108/57
== END 2021-03-08 21:39 | disposition home or self-care (01) ==
LOC: ER 19:22
PROVIDERS: Nurse Practitioner Family
DX: R11.2 Nausea with vomiting, unspecified (principal); R19.7 Diarrhea, unspecified; R10.817 Generalized abdominal tenderness; F17.210 Nicotine dependence, cigarettes, uncomplicated; I10 Essential (primary) hypertension; E11.9 Type 2 diabetes mellitus without complications; M79.7 Fibromyalgia; Z90.710 Acquired absence of both cervix and uterus; Z98.890 Other specified postprocedural states; Z85.850 Personal history of malignant neoplasm of thyroid; Z88.1 Allergy status to other antibiotic agents; Z88.0 Allergy status to penicillin; Z88.8 Allergy status to other drugs, medicaments and biological substances; Z91.040 Latex allergy status; Z88.5 Allergy status to narcotic agent

== ENCOUNTER 2021-04-28 19:18 | Emergency (ER) | payer OTHER ==
[~2021-04-28] VITALS: Ht 170.2 cm; Wt 122.5 kg
[2021-04-28 19:24] VITALS: BP 105/77
[2021-04-28] MEDS ORDERED: HYDROCODON-ACE1 EAC7 PO (20:34)
[2021-04-28] MEDS ORDERED: DOXYCYCLINE 10100 MG PO (20:34)
== END 2021-04-28 21:10 | disposition home or self-care (01) ==
LOC: ER 19:18
DX: L73.2 Hidradenitis suppurativa (principal); L02.412 Cutaneous abscess of left axilla; K13.0 Diseases of lips; I10 Essential (primary) hypertension; F41.9 Anxiety disorder, unspecified; F32.9 Major depressive disorder, single episode, unspecified; M79.7 Fibromyalgia; E11.40 Type 2 diabetes mellitus with diabetic neuropathy, unspecified; G62.9 Polyneuropathy, unspecified; F17.210 Nicotine dependence, cigarettes, uncomplicated; Z85.850 Personal history of malignant neoplasm of thyroid; Z90.710 Acquired absence of both cervix and uterus; Z79.84 Long term (current) use of oral hypoglycemic drugs; Z79.899 Other long term (current) drug therapy; Z79.811 Long term (current) use of aromatase inhibitors; Z79.891 Long term (current) use of opiate analgesic; Z79.51 Long term (current) use of inhaled steroids; Z88.6 Allergy status to analgesic agent; Z91.040 Latex allergy status; Z88.0 Allergy status to penicillin; Z91.09 Other allergy status, other than to drugs and biological substances; Z72.89 Other problems related to lifestyle; Z88.1 Allergy status to other antibiotic agents